=== PATIENT | male | born 1970 | race Caucasian/White ===

== ENCOUNTER → 2019-07-15 12:35 | Outpatient (CLI) | payer OTHER, MEDICARE, SELFPAY ==
--- NOTE | ~2019-07-15 | XR_ITS ---
XR hand RT min 3V 07/15/2019 13:04 INDICATION: Right thumb pain PROCEDURE: 3 views right hand COMPARISON: No prior studies for comparison. FINDINGS: Fracture, dislocation or subluxation is not identified. The soft tissues appear within norm al limits. No foreign bodies are identified. IMPRESSION: 1: NO ACUTE BONE OR JOINT ABNORMALITY IDENTIFIED. Reviewed, dictated and finalized at location A. ELING CLERK
== END ==
PROVIDERS: PCP Family Medicine Adolescent Medicine; Visit Provider Physician Assistant
DX: M79.644 Pain in right finger(s) (principal)
CPT/HCPCS: 73130

== ENCOUNTER 2020-03-04 02:52 | Outpatient (CLI) | payer OTHER, MEDICARE, SELFPAY ==
[2020-03-04 23:12] LABS: SARS-CoV-2 RNA PCR Negative
== END 2020-03-04 02:53 | disposition home or self-care (01) ==
LOC: ANHCOVIDDT 02:52
PROVIDERS: PCP Family Medicine Adolescent Medicine; Visit Provider Internal Medicine Gastroenterology
DX: Z01.812 Encounter for preprocedural laboratory examination (principal); Z20.828 Contact with and (suspected) exposure to other viral communicable diseases
CPT/HCPCS: 87635; C9803; U0003

== ENCOUNTER 2020-03-07 01:09 | Day surgery (SDC) | payer OTHER, MEDICARE, SELFPAY ==
[2020-03-01 10:22] VITALS: BMI 24.3
[2020-03-07 07:54] VITALS: BMI 22.8
[2020-03-07 07:55] VITALS: BP 122/78; PULSE 86; RESP 18; TEMP 36.5; O2SAT 96
[2020-03-07] MEDS: LACTATED RINGERS 1,000 ML 150 ML IV CONT (08:04)
--- NOTE | 2020-03-07 08:30 | WPDANESEPPF ---
Anes - Initial Pre Proc Eval Procedure: Operation Date: 03/07/20 09:00 Proposed Procedures p Screening Colonoscopy - Homar Moulton MD Date/Time: 03/07/20 08:30 Surgeon: Homar Moulton MD Pre Op Diagnosis: Neoplasm Screening Patient Data Age: 50 Gender: M Height: 6 ft Weight: 76.3 kg Last Vital Signs Temp 36.5 C 03/07/20 07:55 Pulse 86 03/07/20 07:55 Resp 18 03/07/20 07:55 BP 122/78 03/07/20 07:55 Pulse Ox 96 03/07/20 07:55 Allergies Allergy/AdvReac Type Severity Reaction Status Date / Time gabapentin Allergy Severe Swelling Verified 03/07/20 07:52 of Lip/Tongue/Throat pregabalin Allergy Severe Swelling Verified 03/07/20 07:52 of Lip/Tongue/Throat propofol Allergy Severe Anaphylactic Verified 03/07/20 07:52 Shock erythromycin base Allergy Intermediate Difficulty Verified 03/07/20 07:52 Breathing propranolol Allergy Unknown Hypertensio Verified 03/07/20 07:52 n ADHESIVES Allergy Mild Rash Uncoded 03/07/20 07:52 Home Medications Medication Instructions Recorded Confirmed Type carbidopa-levodopa 2 tablet PO TID 03/01/20 03/07/20 History naproxen 500 mg PO PRN PRN 03/01/20 03/07/20 History primidone 150 mg PO BID 03/01/20 03/07/20 History Patient hx anesthesia problems: other (propofol - per pt. required shock - cannnot find documentation) Family hx anesthesia problems: none PMFSH Past Medical History Medical History Parkinson disease, symptomatic Smoker Surgical History Surgical History (Updated 03/07/20 @ 08:31 by Luan Brannon MD) H/O carpal tunnel repair Hx of cystoscopy Social History Social History Smoking packs per day: 1 Smoking cigarettes per day: 20.0 Years smoked: 15 Smoking pack-years: 15.00 Smoking status: Current every day smoker Tobacco type: cigarettes Alcohol intake: current Drinks per week: 3 Substance use: never Substance use type: does not use Living arrangements: with family Spiritual care concerns: No Anes - Eval Final PreProcedure Day of Procedure 03/07/20 08:30 Patient weight: normal Heart: regular rate and rhythm Lungs: clear to auscultation Airway: Mallampati scale class II Neurological: alert and oriented Last oral intake: >/= 8 hours ASA classification: III Emergent: no Anesthetic plan: proceed Anesthesia type and monitoring: general GIVS and standard monitoring Informed Consent: The patient's anesthetic plan and its attendant risks and benefits were discussed with the patient/family/POA. Questions were solicited and answers provided to the satisfaction of the patient/family/POA.
[2020-03-07] MEDS: MIDAZOLAM HCL (*CRX) 2 MG/2 ML VIAL IV PUSH (09:01)
--- NOTE | 2020-03-07 09:03 | PM.HPGS ---
History of Present Illness History of Present Illness Consent: Risks, benefits, and alternatives have been discussed and questions answered. Patient agrees to proceed with procedure. Chief complaint: Neoplasm Screening Narrative: Ronald Ventura is a 50 year old W male referred for his 1st screening colonoscopy. Family history of colon cancer in brother diagnosed in his late 50s. Patient is asymptomatic. [facility] Past Medical History Medical History Parkinson disease, symptomatic Smoker Surgical History Surgical History H/O carpal tunnel repair Hx of cystoscopy Social History Social History Smoking packs per day: 1 Smoking cigarettes per day: 20.0 Years smoked: 15 Smoking pack-years: 15.00 Smoking status: Current every day smoker Tobacco type: cigarettes Alcohol intake: current Drinks per week: 3 Substance use: never Substance use type: does not use Living arrangements: with family Spiritual care concerns: No Meds Home Medications and Allergies Home Medications Medication Instructions Recorded Confirmed Type carbidopa-levodopa 2 tablet PO TID 03/01/20 03/07/20 History naproxen 500 mg PO PRN PRN 03/01/20 03/07/20 History primidone 150 mg PO BID 03/01/20 03/07/20 History Allergies Allergy/AdvReac Type Severity Reaction Status Date / Time gabapentin Allergy Severe Swelling Verified 03/07/20 07:52 of Lip/Tongue/Throat pregabalin Allergy Severe Swelling Verified 03/07/20 07:52 of Lip/Tongue/Throat propofol Allergy Severe Anaphylactic Verified 03/07/20 07:52 Shock erythromycin base Allergy Intermediate Difficulty Verified 03/07/20 07:52 Breathing propranolol Allergy Unknown Hypertensio Verified 03/07/20 07:52 n ADHESIVES Allergy Mild Rash Uncoded 03/07/20 07:52 Vital Signs Vital Signs - 24 hr 03/07/20 07:55 Temperature 36.5 C Pulse Rate 86 Respiratory Rate 18 Blood Pressure 122/78 Pulse Oximetry 96 Exam Const: Orientation/consciousness: patient oriented x3 Resp: Auscultation: clear to auscultation bilaterally Cardio: Rate: regular rate Rhythm: regular rhythm Heart sounds: no murmurs GI: GI Palp: Yes Soft to palpation, No Tenderness to palpation present (GI), Yes No hepatosplenomegaly present and No Palpable mass present Auscultation: normal bowel sounds Neuro: General: patient oriented x3 and no focal motor deficits Extrem: General: no pedal edema Assessment and Plan Additional Plan Screening colonoscopy in high risk patient
[2020-03-07 10:01] VITALS: BP 143/92; PULSE 81; RESP 21; O2SAT 98
[2020-03-07 10:11] VITALS: BP 131/83; PULSE 80; RESP 17; O2SAT 100
[2020-03-07 10:21] VITALS: BP 136/86; PULSE 81; RESP 18; O2SAT 100
--- NOTE | 2020-03-07 10:47 | SUR.PHASEII ---
Intra Op nurse unable to reach at cell# pt listed- no reports/updates given.Pt gave land line to try. Pt's called at 0925 for report. 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 Pt's arrived at stated time. Pt discharged in stable condition. [id number]
== END 2020-03-07 10:45 | disposition home or self-care (01) ==
PROVIDERS: PCP Family Medicine Adolescent Medicine; Visit Provider Internal Medicine Gastroenterology
PROC: 0DJD8ZZ Inspection of Lower Intestinal Tract, Via Natural or Artificial Opening Endoscopic (ICD-10-PCS; CPT 45378; principal; 2020-03-07 09:00)
DX: Z12.11 Encounter for screening for malignant neoplasm of colon (principal); K57.30 Diverticulosis of large intestine without perforation or abscess without bleeding; K64.8 Other hemorrhoids; K64.4 Residual hemorrhoidal skin tags; Z80.0 Family history of malignant neoplasm of digestive organs; G20 Parkinson's disease; F17.210 Nicotine dependence, cigarettes, uncomplicated
CPT/HCPCS: 45378; J2250; J7120

== ENCOUNTER 2020-09-09 15:22 | Outpatient (CLI) | payer OTHER, MEDICARE, SELFPAY | END 2020-09-09 15:23 | disposition home or self-care (01) | LOC: ANHCOVIDVC 15:22 | PROVIDERS: PCP Family Medicine Adolescent Medicine | DX: Z23 Encounter for immunization (principal) | CPT/HCPCS: 0001A; 91300 ==

== ENCOUNTER 2020-09-30 15:13 | Outpatient (CLI) | payer OTHER, MEDICARE, SELFPAY | END 2020-09-30 15:14 | disposition home or self-care (01) | LOC: ANHCOVIDVC 15:13 | PROVIDERS: PCP Family Medicine Adolescent Medicine | DX: Z23 Encounter for immunization (principal) | CPT/HCPCS: 0002A; 91300 ==

== ENCOUNTER → 2021-02-16 13:42 | Outpatient (CLI) | payer OTHER, MEDICARE, SELFPAY ==
--- NOTE | ~2021-02-16 | XR_ITS ---
EXAMINATION: XR elbow RT min 3V DATE: 02/16/2021 14:13 INDICATION: Right elbow pain. TECHNIQUE: 4 views of right elbow were obtained. COMPARISON: None. FINDINGS: Bone alignment is normal. No fracture. Joint spaces are well maintained. There is no elbow joint effusion. IMPRESSION: 1. Normal right elbow. Reviewed, dictated and finalized at location A. IMPRESSION: 1. Normal right elbow.
== END ==
PROVIDERS: PCP Family Medicine Adolescent Medicine; Visit Provider Physician Assistant
DX: M25.521 Pain in right elbow (principal)
CPT/HCPCS: 73080

== ENCOUNTER 2021-07-07 09:20 | Outpatient (CLI) | payer OTHER, MEDICARE, SELFPAY ==
--- NOTE | 2021-07-07 09:30 | ECG_ITS ---
Measurements Intervals [place] Rate: 73 P: 70 IN: 145 QRS: -60 QRSD: 101 T: 46 QT: 378 QTc: 417 Interpretive Statements SINUS RHYTHM INCOMPLETE RIGHT BUNDLE BRANCH BLOCK LEFT ANTERIOR FASCICULAR BLOCK PEAKED T WAVES- CONSIDER HYPERKALEMIA OR ISCHEMIA BASELINE ARTIFACT- I, III, AVL ABNORMAL ECG Electronically Signed On 07-07-2021 10:44:32 PICK UP TRUCK DRIVER by Damion Ledesma D.O.
== END 2021-07-07 09:21 | disposition home or self-care (01) ==
LOC: ANHSURGERY 09:24
PROVIDERS: PCP Family Medicine Adolescent Medicine; Visit Provider Orthopaedic Surgery
DX: Z01.818 Encounter for other preprocedural examination (principal); F17.210 Nicotine dependence, cigarettes, uncomplicated; I45.10 Unspecified right bundle-branch block; I44.4 Left anterior fascicular block
CPT/HCPCS: 93005

== ENCOUNTER 2021-07-14 03:39 | Day surgery (SDC) | payer OTHER, MEDICARE, SELFPAY ==
[2021-07-05 14:42] VITALS: BMI 23.1
--- NOTE | 2021-07-05 14:55 | PC.NURSE ---
Report to the Outpatient Waiting Room, entrance under the green pavilion located off [facility], at time 8:30 on date 07/14/21. OR Time: 10:30. - You will be asked a series of questions to screen for COVID 19 for your protection. - A mask is required within the hospital. - No visitors are allowed at this time. Preoperative COVID Testing Requirements: No COVID Test needed if: (proof is required; if not received patient will have Rapid Test prior to entry) - Patient has received COVID Vaccine at least 14 days prior to procedure date or - Patient has positive COVID test result within last 90 days of surgery date. COVID Test needed if above criteria is not met Patients may have clear liquids (water, carbonated beverages, clear teas, apple juice) until 3 hours prior to surgery (7:30) with a maximum of 20 ounces. - No food from midnight until time of surgery Take the following medications with a SIP of water the morning of surgery: CARBIDOPA-LEVODOPA, PRIMIDONE, LORAZEPAM (IF NEEDED) Medications to discontinue per physician: VITAMINS/SUPPLEMENTS Date to take last dose: 07/10/21 STOP NAPROXEN 7 DAYS PRIOR TO SURGERY PER DR. SUTHERLAND Please no make-up, nail nepalese, hairspray, perfume, deodorant, or body powder the day of surgery. No jewelry (including any body piercings) or valuables the day of surgery, leave them at home. Please take a shower or bath the night before, or the morning of, surgery with an antibacterial soap. Wear comfortable, loose fitting clothing. - Jewelry must be removed prior to entering the operating room. Rings and piercings that are not removed may be cut off. - The hospital will not accept responsibility for valuables. - Please leave all valuables, including medications, at home the day of surgery. If you are going home after surgery, a licensed recycling collections driver must drive you home. - NO public transportation without another adult. - We recommend that an adult stay with you for 24 hours following discharge. - We also recommend that you do not drive, make important decision, drink alcoholic beverages, or take any drugs that were not prescribed by your health care provider for at least 24 hours after your discharge time. Follow any additional instructions given to you from your surgeon. Telephone instructions given to BROOKE SCHROEDER and asked if any additional questions and then verbalized understanding. Patient advised to call surgeon office or pre surgery nurse liaison [phone] if any additional questions.
[2021-07-14] VITALS (8 sets, daily range): BP systolic 126–144; BP diastolic 77–88; PULSE 59–94; RESP 12–20; TEMP 36.1–36.3; O2SAT 96–100
--- NOTE | 2021-07-14 07:32 | WPDHPUPDATE1 ---
History and Physical Update Update Date/Time: 07/14/21 07:32 History and Physical has been reviewed, including an updated exam of the patient. There are NO changes in the patient's condition. Risks, benefits, and alternatives have been discussed and questions answered. Patient agrees to proceed with procedure.
[2021-07-14] MEDS: ACETAMINOPHEN 500 MG TABLET 1000 MG PO (08:16)
[2021-07-14] MEDS: LACTATED RINGERS 1,000 ML 30 ML IV CONT ×2 (08:16→10:10)
[2021-07-14] MEDS: KETOROLAC 15 MG/ML VIAL (*BKC) IV PUSH (08:16)
--- NOTE | 2021-07-14 08:23 | WPDANESEPPF ---
Anes - Initial Pre Proc Eval Procedure: Operation Date: 07/14/21 10:30 Proposed Procedures p Open Lateral Epicondyle Debridement Right Elbow, Right Cubital Tunnel Decompression - Nikhil Hernandez MD Date/Time: 07/14/21 08:23 Surgeon: Nikhil Hernandez MD Pre Op Diagnosis: lateral epicondylitis right elbow Patient Data Age: 51 Gender: M Height: 1.82 m Weight: 77 kg Allergies Allergy/AdvReac Type Severity Reaction Status Date / Time gabapentin Allergy Severe Swelling Verified 07/14/21 08:23 of Lip/Tongue/Throat pregabalin Allergy Severe Swelling Verified 07/14/21 08:23 of Lip/Tongue/Throat propofol Allergy Severe Anaphylactic Verified 07/14/21 08:23 Shock erythromycin base Allergy Intermediate Difficulty Verified 07/14/21 08:23 Breathing propranolol Allergy Unknown Hypertensio Verified 07/14/21 08:23 n ADHESIVES Allergy Mild Rash Uncoded 07/14/21 08:23 Home Medications Medication Instructions Recorded Confirmed Type carbidopa-levodopa 2 tablet PO TID 03/01/20 07/05/21 History naproxen 500 mg PO PRN PRN 03/01/20 07/05/21 History primidone 150 mg PO BID 03/01/20 07/05/21 History lorazepam 1 mg tablet 1 mg PO BID PRN 03/06/21 07/05/21 History dicyclomine 20 mg PO TID PRN 07/05/21 07/05/21 History multivitamin 1 tablet PO DAILY 07/05/21 07/05/21 History Patient hx anesthesia problems: none Family hx anesthesia problems: none Results Review: All pre-operative results and documents have been reviewed as part of the pre-operative evaluation. [facility] Past Medical History Medical History Anxiety Parkinson disease, symptomatic Smoker Surgical History Surgical History H/O carpal tunnel repair Hx of cystoscopy Social History Social History Smoking packs per day: 1 Smoking cigarettes per day: 20.0 Years smoked: 15 Smoking pack-years: 15.00 Smoking status: Current every day smoker Tobacco type: cigarettes Alcohol intake: current Drinks per week: 3 Substance use: never Substance use type: does not use Other substance usage details: CBD ORAL DROPS FOR TREMORS Living arrangements: with family Spiritual care concerns: No Anes - Eval Final PreProcedure Day of Procedure 07/14/21 08:23 Patient weight: normal Heart: regular rate and rhythm Lungs: clear to auscultation Airway: Mallampati scale class II Neurological: alert and oriented Last oral intake: >/= 8 hours ASA classification: III Emergent: no Anesthetic plan: proceed Anesthesia type and monitoring: general LMA and standard monitoring Results Review: All pre-operative results and documents have been reviewed as part of the pre-operative evaluation. Informed Consent: The patient's anesthetic plan and its attendant risks and benefits were discussed with the patient/family/POA. Questions were solicited and answers provided to the satisfaction of the patient/family/POA.
[2021-07-14] MEDS: ceFAZolin 2 GM/D5W 50 ML 2 GM/50 ML BAG IVPB (08:54)
[2021-07-14] MEDS: BUPIVACAINE/EPINEPHRINE 0.25% 10 ML VIAL 20 ML INFILTRATE (09:04)
[2021-07-14] MEDS: fentaNYL CITRATE INJ (*CRX) 100 MCG/2 ML VIAL 25 MCG IV PUSH ×3 (10:40→11:00)
[2021-07-14] MEDS: oxyCODONE HCL (*CRX) 5 MG TAB IR PO (11:29)
--- NOTE | 2021-07-14 16:11 | P.OP_ITS ---
Procedure Note - Detailed Date of Procedure 07/14/21 Pre-op Diagnosis 1. Lateral epicondylitis right elbow 2. Ulnar neuropathy right elbow. Post-op Diagnosis same Procedure Performed 1. Cubital tunnel decompression right elbow. 2. Lateral epicondylitis common extensor tendon debridement. Surgeon Nikhil Hernandez MD Piece Work Inspector Eileen Rodas PA-C Anesthesia general Description of Procedure Operative details: The patient was brought to the operating room. Preoperative antibiotics were given. A general anesthetic was administered. The arm was prepped and draped in the usual sterile fashion with a well-padded tourniquet on the arm. The limb was exsanguinated and the tourniquet inflated to 250 mililiters of mercury. A longitudinal incision was created over the pathological site at the lateral epicondyle. Dissection was brought down to the interval between the common extensor tendons and the extensor carpi radialis longus. The muscle was elevated, exposing the extensor carpi radialis brevis. Degenerative pathologic tendon was identified and excised sharply. The lateral epicondyle was abraded with a rongeur. The scratch test was to confirm complete excision of pathologic tissue. The wound was carefully irrigated. The tourniquet was released. The extensor tendon origin was repaired with [id number] sutures #1 Vicryl . Attention was turned medially. A longitudinal incision was created posterior to the medial epicondyle. Careful dissection was brought down to the ulnar nerve. It was identified proximally and dissected to the cubital tunnel retinaculum. Careful dissection released the cubital tunnel retinaculum. The dissection was carried out to the flexor carpi the palmaris. The 1st motor branch was carefully identified and protected. Attention was turned proximally and the nerve was released proximal to the intermuscular septum. The arm was flexed and the nerve was assessed. The nerve was stable. The tourniquet was released. Meticulous hemostasis was maintained. The wounds were closed with interrupted 3-0 Monocryl suture followed by running 4-0 Monocryl suture and Steri-Strips. Sterile dressing was applied with the wrist splint, and posterior splint. The patient was extubated and brought to the recovery room in stable condition. Estimated Blood Loss 5 Drains No Pathology none sent Complications No immediate complications Condition stable Disposition PACU
== END 2021-07-14 12:20 | disposition home or self-care (01) ==
PROVIDERS: PCP Family Medicine Adolescent Medicine; Visit Provider Orthopaedic Surgery
PROC: (CPT 24359; principal; 2021-07-14 10:30)
DX: M77.11 Lateral epicondylitis, right elbow (principal); G56.21 Lesion of ulnar nerve, right upper limb; G20 Parkinson's disease; F41.9 Anxiety disorder, unspecified; F17.210 Nicotine dependence, cigarettes, uncomplicated; F12.90 Cannabis use, unspecified, uncomplicated
CPT/HCPCS: 24359; 64718; 93005; A9270; J0690; J1100; J1885; J2250; J2405; J3010; J7120

== ENCOUNTER 2022-02-25 17:11 | Emergency (ER) | payer OTHER, MEDICARE, SELFPAY ==
--- NOTE | ~2022-02-25 | XR_ITS ---
EXAMINATION: XR chest 2V Exam Date/Time: 02/25/2022 18:08 CDT HISTORY: neck pain to chest Comparison: 03/28/2009. RESULT: Lines, tubes, and devices: Interbody devices at the thoracolumbar junction. Lungs and pleura: Clear. Cardiomediastinal silhouette: Stable. Other: No acute osseous or upper abdominal finding. IMPRESSION: No acute cardiopulmonary process. Reviewed, dictated and finalized at location K.
[2022-02-25 17:34] VITALS: BP 142/89; PULSE 99; RESP 16; TEMP 36.5; O2SAT 100
--- NOTE | 2022-02-25 18:26 | ECG_ITS ---
Measurements Intervals [place] Rate: 78 P: 26 [place]: 128 QRS: -58 QRSD: 104 T: 48 QT: 379 QTc: 434 Interpretive Statements SINUS RHYTHM POSSIBLE RIGHT VENTRICULAR CONDUCTION DELAY [RSR (QR) IN V1/V2] LEFT ANTERIOR FASCICULAR BLOCK [QRS AXIS <= -45, QR IN I, RS IN II] PEAKED T-WAVES/CONSIDER HYPERKALEMIA COMPARED TO ECG 07/07/2021 09:54:18 NO SIGNIFICANT CHANGES Electronically Signed On 02-26-2022 14:37:42 CDT by Kofi Monsivais M.D.
--- NOTE | 2022-02-25 18:36 | ED.GENADULT ---
HPI - General Adult General Chief complaint: Unspecified Stated complaint: odd chest pain Source: patient Mode of arrival: ambulatory Limitations: no limitations History of Present Illness HPI narrative: Patient presents for evaluation of neck pain which radiates into his chest since yesterday. He indicates that pain occurs approximately 12-15 times per day and lasts seconds. He states that this feels like a hot pulse . He rates his pain 5 out of 10 in severity. Denies any shortness of breath. He has an occasional cough. No history of similar symptoms. He has underlying Parkinson's. He denies any underlying hypertension, hyperlipidemia, diabetes. He is a former smoker, with [id number] history. No maternal or paternal history of heart disease. Reports high stress levels. He drinks several beers on a daily basis but consumes at least 5-6 beers multiple times per week. Denies any illicit drug use. He states that his symptoms seem to occur when he closes his eyes. No additional complaints or concerns. Related Data Home Medications Medication Instructions Recorded Confirmed carbidopa 25 mg-levodopa 100 mg 2 tablet PO TID 03/01/20 02/25/22 tablet naproxen 500 mg tablet 500 mg PO PRN PRN Pain 03/01/20 02/25/22 primidone 50 mg tablet 150 mg PO BID 03/01/20 02/25/22 Allergies Allergy/AdvReac Type Severity Reaction Status Date / Time clindamycin Allergy Severe Hives Verified 02/25/22 17:37 gabapentin Allergy Severe Swelling Verified 02/25/22 17:37 of Lip/Tongue/Throat pregabalin Allergy Severe Swelling Verified 02/25/22 17:37 of Lip/Tongue/Throat propofol Allergy Severe Anaphylactic Verified 02/25/22 17:37 Shock erythromycin base Allergy Intermediate Difficulty Verified 02/25/22 17:37 Breathing propranolol Allergy Unknown Hypertensio Verified 02/25/22 17:37 n cefaclor AdvReac Intermediate Vomiting Verified 02/25/22 17:37 ADHESIVES Allergy Mild Rash Uncoded 02/25/22 17:37 Review of Systems Review of Systems: CONSTITUTIONAL: Denies fever, chills, or sweats. EYES: Denies visual changes, redness, or discharge. ENT: Denies rhinorrhea, congestion, sore throat, or otalgia. CARDIOVASCULAR: Reports chest pain. Denies palpitations, or edema. RESPIRATORY: Denies cough or dyspnea. GASTROINTESTINAL: Denies abdominal pain, nausea, vomiting, or diarrhea. GENITOURINARY: Denies dysuria or hematuria. SKIN: Denies rash or itching. MUSCULOSKELETAL: Reports right-sided neck pain with radiation into the chest. NEUROLOGIC: Denies headache, numbness, dizziness, or weakness. PSYCHIATRIC: Denies anxiety or depression. [facility] Past Medical History Medical History Anxiety Parkinson disease, symptomatic Smoker Ureteral calculus, right (2011) Surgical History Surgical History H/O carpal tunnel repair Hx of appendectomy (2003) Hx of cystoscopy Hx of hemorrhoidectomy (2013) Hx of neck surgery Hx of tonsillectomy Family History Family History Sibling Carcinoma of colon Social History Social History Smoking packs per day: 1 Smoking cigarettes per day: 20.0 Years smoked: 11 Smoking pack-years: 11.00 Smoking status: Former smoker Tobacco type: cigarettes Second hand tobacco smoke exposure: No Smoking end date: 01/10/22 Alcohol intake: current Alcohol use details: Drinks several beers per day Substance use: never Substance use type: does not use Other substance usage details: CBD ORAL DROPS FOR TREMORS Living arrangements: with family Additional occupation/education comments: Disability Gender identity (if verbalized by the patient): Male Sexual Orientation (if Verbalized by the Patient): Straight or Heterosexual Spiritual care c
== END 2022-02-25 19:20 | disposition short-term general hospital (02) ==
PROVIDERS: Emergency Provider Nurse Practitioner; PCP Family Medicine Adolescent Medicine
DX: R07.9 Chest pain, unspecified (principal); G20 Parkinson's disease; Z87.891 Personal history of nicotine dependence
CPT/HCPCS: 71046; 93005; 99213; G0463

== ENCOUNTER 2022-02-25 19:52 | Emergency (ER) | payer OTHER, MEDICARE, SELFPAY ==
[2022-02-25] VITALS (14 sets, daily range): BP systolic 128–139; BP diastolic 85–89; PULSE 71–82; RESP 13–24; TEMP 36.3; O2SAT 97–100
--- NOTE | 2022-02-25 20:05 | ECG_ITS ---
Measurements Intervals [place] Rate: 82 P: 151 [place]: 133 QRS: -23 QRSD: 100 T: 105 QT: 360 QTc: 422 Interpretive Statements ECTOPIC ATRIAL RHYTHM POSSIBLE LEFT ATRIAL ENLARGEMENT [-0.1mV P WAVE IN V1/V2] BORDERLINE LEFT AXIS DEVIATION [QRS AXIS < -20] INCOMPLETE RIGHT BUNDLE BRANCH BLOCK [90+ ms QRS DURATION, TERMINAL R IN V1/V2, 40+ ms S IN I/aVL/V4/V5/V6] LEFT VENTRICULAR HYPERTROPHY AND ST-T CHANGE [VOLTAGE CRITERIA PLUS ST/T ABNORMALITY] COMPARED TO ECG 02/25/2022 18:26:20 PEAKED T-WAVE CHANGES ARE SOMEWHAT IMPROVED Electronically Signed On 02-26-2022 14:41:26 CDT by Kofi Monsivais M.D.
[2022-02-25 20:20] LABS: Basophils Percent Auto 0.4 % (0.2-1.2); Eosinophils Absolute Auto 0.3 K/mm3 (0-0.3); Eosinophils Percent Auto 3.5 % (0-4.4); Hematocrit 42.2 % (42.0-52.0); Hemoglobin 13.9 g/dL (14.0-18.0); Immature Granulocyte Absolute 0.01 K/mm3 (0.00-0.031); Immature Granulocyte Percent A 0.1 % (0-0.5); Lymphocytes Absolute Auto 2.27 K/mm3 (0.9-3.2); Lymphocytes Percent Auto 29.5 % (18.3-44.2); Mean Corpuscular HGB Conc 32.9 g/dl (32-36); Mean Corpuscular Hemoglobin 30.8 pg (26-34); Mean Corpuscular Volume 93.6 fl (80-100); Mean Platelet Volume 9.1 fl (7.4-10.4); Monocytes Absolute Auto 0.8 K/mm3 (0.1-0.6); Monocytes Percent Auto 9.9 % (2.6-8.5); Neutrophils Absolute Auto 4.4 K/mm3 (1.3-6.7); Neutrophils Percent Auto 56.6 % (45.5-73.1); Platelet Count Result 313 k/mm3 (150-375); Red Blood Count 4.51 M/mm3 (4.6-6.20); Red Cell Distribution Width 13.4 % (11.5-14.5); White Blood Count 7.7 K/mm3 (4.5-10.0)
[2022-02-25 20:30] LABS: Prothrombin Time 12.8 Seconds (11.1-14.7)
[2022-02-25 20:31] LABS: Alanine Aminotransferase 9 U/L (6-50); Alkaline Phosphatase 60 U/L (38-126); Anion Gap 11 mmol/L (8-16); Aspartate Amino Transferase 43 U/L (17-59); Bilirubin,Total 0.6 mg/dL (0.2-1.3); Blood Urea Nitrogen 19 mg/dL (9-20); Calcium 9.1 mg/dL (8.4-10.2); Carbon Dioxide 24 mmol/L (22-30); Chloride 104 mmol/L (98-107); Estimated CRCL calculation 111 ml/min; Estimated Glomerular Filt Rate > 60; Glucose 99 mg/dL (65-110); Lipase 58 U/L (23-300); Partial Thromboplastin Time 33.1 SECONDS (22.3-36.8); Potassium 4.2 mmol/L (3.4-5.0); Sodium 139 mmol/L (137-145)
[2022-02-25 20:43] LABS: Troponin I < 0.012 ng/mL (0.000-0.034)
[2022-02-25] MEDS: ASPIRIN 81 MG CHEWABLE TABLET 324 MG PO (20:51)
--- NOTE | 2022-02-25 22:14 | ED.CHESTPAIN ---
HPI - Chest Pain General Chief Complaint: Chest Pain <KAYDEN Sood Filed: 02/26/22 01:26> Stated Complaint: chest pain <KAYDEN Sood Filed: 02/26/22 01:26> Time Seen by Provider: 02/25/22 20:43 <KAYDEN Sood Last Filed: 02/26/22 01:26> Source: patient <KAYDEN Sood Filed: 02/26/22 01:26> Mode of arrival: ambulatory <KAYDEN Sood Filed: 02/26/22 01:26> Limitations: no limitations <KAYDEN Sood Filed: 02/26/22 01:26> History of Present Illness HPI narrative: Patient is a 52 y/o male who presents to the ED with c/o right-sided neck pain, radiating into his midsternal chest, for the past 3 days. Patient reports pain has been intermittent, occurring a few times every hour. He has not tried anything for the pain. Notes occasional shortness of breath, but denies pleuritic pain. Patient states he had a similar episode of pain 4 years ago in which she was told he had an infection of his heart and was given 3 to 5 day course of antibiotics. Denies any nausea, vomiting, fever, ear pain, cough, cold sx's. <KAYDEN Sood Last Filed: 02/26/22 01:26> Related Data Home Medications: Home Medications Medication Instructions Recorded Confirmed carbidopa 25 mg-levodopa 100 mg 2 tablet PO TID 03/01/20 02/25/22 tablet naproxen 500 mg tablet 500 mg PO PRN PRN Pain 03/01/20 02/25/22 primidone 50 mg tablet 150 mg PO BID 03/01/20 02/25/22 <KAYDEN Sood Last Filed: 02/26/22 01:26> Allergies/Adverse Reactions: Allergies Allergy/AdvReac Type Severity Reaction Status Date / Time clindamycin Allergy Severe Hives Verified 02/25/22 17:37 gabapentin Allergy Severe Swelling Verified 02/25/22 17:37 of Lip/Tongue/Throat pregabalin Allergy Severe Swelling Verified 02/25/22 17:37 of Lip/Tongue/Throat propofol Allergy Severe Anaphylactic Verified 02/25/22 17:37 Shock erythromycin base Allergy Intermediate Difficulty Verified 02/25/22 17:37 Breathing propranolol Allergy Unknown Hypertensio Verified 02/25/22 17:37 n cefaclor AdvReac Intermediate Vomiting Verified 02/25/22 17:37 ADHESIVES Allergy Mild Rash Uncoded 02/25/22 17:37 <Anat Ayala PA-C - Last Filed: 02/26/22 01:26> Review of Systems Review of Systems: CONSTITUTIONAL: Denies fever, chills, or sweats. ENT: Denies rhinorrhea, congestion, sore throat. CARDIOVASCULAR: Reports midsternal chest pain. RESPIRATORY: Reports SOB. Denies cough. GASTROINTESTINAL: Denies abdominal pain, nausea, vomiting. MUSCULOSKELETAL: Reports right-sided neck pain into the chest. 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
[2022-02-25 22:49] LABS: D Dimer 0.43 ug/mL (<0.48)
[2022-02-25 23:24] LABS: Troponin I < 0.012 ng/mL (0.000-0.034)
[2022-02-26 00:09] VITALS: BP 129/76; PULSE 76; RESP 18; O2SAT 98
== END 2022-02-26 00:10 | disposition home or self-care (01) ==
PROVIDERS: Physician Assistant; Emergency Provider Emergency Medicine; PCP Family Medicine Adolescent Medicine
DX: R07.89 Other chest pain (principal); G20 Parkinson's disease; F41.9 Anxiety disorder, unspecified; Z87.891 Personal history of nicotine dependence; F12.90 Cannabis use, unspecified, uncomplicated
CPT/HCPCS: 36415; 71046; 80053; 83690; 84484; 85025; 85380; 85610; 85730; 93005; 99284; A9270

== ENCOUNTER 2022-06-02 10:17 | Emergency (ER) | payer OTHER, MEDICARE, SELFPAY ==
[2022-06-02 10:26] VITALS: BP 129/82; PULSE 80; RESP 18; TEMP 36.8; O2SAT 100
--- NOTE | 2022-06-02 10:38 | ED.GENADULT ---
HPI - General Adult General Chief complaint: Fall Stated complaint: Fall/ Don't Remember Time Seen by Provider: 06/02/22 10:38 Source: patient, RN notes reviewed and old records reviewed Mode of arrival: ambulatory Limitations: no limitations History of Present Illness HPI narrative: 52-year-old male presents to the [facility] with his with complaints of falling night. Does not remember why or how he fell does not remember if he was indoors or outdoors. states that she woke him up Saturday morning and he started vomiting complaining of a headache, eye pain, bruising around the eyes. No midline tenderness. states that she was concerned for a concussion. Has only taken prescribe medication Onset (ago): day(s) (2) Related Data Home Medications Medication Instructions Recorded Confirmed carbidopa 25 mg-levodopa 100 mg 2 tablet PO QID 03/01/20 06/02/22 tablet primidone 50 mg tablet 150 mg PO BID 03/01/20 06/02/22 ipratropium bromide 21 mcg (0.03 2 spray intranasal BID 06/02/22 06/02/22 %) nasal spray propranolol 10 mg tablet 10 mg BID 06/02/22 06/02/22 Allergies Allergy/AdvReac Type Severity Reaction Status Date / Time clindamycin Allergy Severe Hives Verified 06/02/22 10:32 gabapentin Allergy Severe Swelling Verified 06/02/22 10:32 of Lip/Tongue/Throat pregabalin Allergy Severe Swelling Verified 06/02/22 10:32 of Lip/Tongue/Throat propofol Allergy Severe Anaphylactic Verified 06/02/22 10:32 Shock erythromycin base Allergy Intermediate Difficulty Verified 06/02/22 10:32 Breathing propranolol Allergy Unknown Hypertensio Verified 06/02/22 10:32 n cefaclor AdvReac Intermediate Vomiting Verified 06/02/22 10:32 ADHESIVES Allergy Mild Rash Uncoded 06/02/22 10:32 Review of Systems Review of Systems: All systems reviewed & are unremarkable except as noted in HPI and below Constitutional: Constitutional: Reports as per HPI, Reports fatigue and Reports headache(s) Eyes: Eyes: Reports as per HPI, Reports change in vision and Reports photophobia ENT: Reports system reviewed and no additional complaints, except as documented Cardiovascular: Cardiovascular: Reports no additional cardiovascular complaints, Denies chest pain and Denies dyspnea Respiratory: Respiratory: Reports no additional respiratory complaints, Denies chest congestion, Denies cough and Denies dyspnea Gastrointestinal: Gastrointestinal: Reports no additional gastrointestinal complaints, Denies abdominal pain, Denies nausea and Denies vomiting Musculoskeletal: Musculoskeletal: Reports no additional musculoskeletal complaints Integumentary/Breasts: Skin/Breast: Reports system reviewed and no additional complaints, except as docu Neurologic: Reports system reviewed and no additional complaints, except as documented Psychiatric: Psychiatric: Reports no additional psychiatric complaints Allergic/Immunologic: Allergic/Immunologic: Reports no additional allergic/immunologic complaints PMFSH Past Medical History Medical History Anxiety Parkinson disease, symptomatic Smoker Ureteral calculus, right (2011) Surgical History Surgical History H/O carpal tunnel repair 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
== END 2022-06-02 10:48 | disposition short-term general hospital (02) ==
PROVIDERS: Emergency Provider Nurse Practitioner; PCP Family Medicine Adolescent Medicine
DX: S09.90XA Unspecified injury of head, initial encounter (principal); W19.XXXA Unspecified fall, initial encounter; Z87.891 Personal history of nicotine dependence; G20 Parkinson's disease
CPT/HCPCS: 99212; G0463

== ENCOUNTER 2022-06-02 11:08 | Emergency (ER) | payer OTHER, MEDICARE, SELFPAY ==
[2022-06-02] VITALS (10 sets, daily range): BP systolic 107–146; BP diastolic 63–91; PULSE 70–85; RESP 16; TEMP 36.5–36.8; O2SAT 96–100
--- NOTE | ~2022-06-02 | CT_ITS ---
EXAMINATION: CT cervical spine wo con DATE: 06/02/2022 13:29 INDICATION: Neck pain after trauma TECHNIQUE: Computed tomography (CT) of the cervical spine was performed without intravenous contrast. The dose-length product was 328 mGy-cm. Automated exposure control and iterative reconstruction tech Stadius were employed. COMPARISON: MRI cervical spine dated 12/08/2004 FINDINGS: Normal cervical lordosis. There is disc narrowing and endplate degenerative change at C6-7. Craniovertebral junction is normal. Odontoid process is normal. No acute fracture, subluxation or di slocation. Mild multilevel uncinate and facet degenerative change, most prominent at C6-7. Lateral ma sses normally aligned. No paraspinal soft tissue abnormality. No evidence for perched facet. Spinous processes are normal. IMPRESSION: 1. No acute abnormality of the cervical spine. Reviewed, dictated and finalized at location A. DISPATCHER
--- NOTE | ~2022-06-02 | CT_ITS ---
EXAMINATION: CTA brain carotid DATE: 06/02/2022 13:36 [employer]S HELPER INDICATION: Trauma. Recurrent emesis. TECHNIQUE: Computed tomographic angiography (CTA) of the head was performed without and with 100 mL O mnipaque-350 intravenous contrast. CTA of the neck was performed with intravenous contrast. The dose- length product was 1879.03 mGy-cm. Maximum intensity projection and volume rendered 3D-reconstruction s were created by the technologist on a separate workstation. Automated exposure control and iterative reconstruction technique were employed. COMPARISON: CT dated 07/06/2005 and MRI dated 03/08/2010. FINDINGS: HEAD CTA: There are focal parenchymal hemorrhage of the frontal lobes bilaterally with surrounding va sogenic edema. No ventriculomegaly or midline shift. Basilar cisterns are patent. There is mucosal th ickening of the paranasal sinuses. Small foreign body identified in the left supraorbital location. T here is a nondepressed frontal skull fracture slightly lateral to the midline on the left. The verteb ral and basilar arteries are normal. The grand traverse of Humphre[place] is within normal limits. The anterior, midd le and posterior cerebral arteries are symmetric. No significant stenosis, occlusion or aneurysm. NECK CTA: Lung apices are unremarkable. No significant abnormality of the aorta is seen. Great vessel s within normal limits. Mild atherosclerosis of the carotid arteries without significant stenosis, or dissection. No occlusion. Vertebral arteries are within normal limits bilaterally. No evidence for d issection. Thyroid gland is unremarkable. There is 0% stenosis of the proximal right internal carotid artery relative to normal distal artery l umen diameter (NASCET criteria). There is less than 10% stenosis of the proximal left internal caroti d artery relative to normal distal artery lumen diameter. IMPRESSION: 1: Bilateral frontal lobe parenchymal hemorrhages with surrounding vasogenic edema. 2: Nondepressed frontal skull fracture. 3: Moderate sinus disease. 4: No significant vascular abnormality of the head or neck. Dr. Juan Carlos Lin discussed with Dr. Tish Cotton MD at 06/02/2022 13:45 [employer] HEL[employer]. Reviewed, dictated and finalized at location A. A'S HELPER IMPRESSION: 1: Bilateral frontal lobe parenchymal hemorrhages with surrounding vasogenic ed karen. 2: Nondepressed frontal skull fracture. 3: Moderate sinus disease. 4: No significant vascular abnormality of the head or neck. Dr. Juan Carlos Lin discussed with Dr. Tish Cotton MD at 06/02/2022 13:45 [employer] HELPER.
--- NOTE | ~2022-06-02 | XR_ITS ---
EXAMINATION: XR chest 2V 06/02/2022 12:58 INDICATION: Status post fall. Chest pain. PROCEDURE: 2 view chest COMPARISON: 02/25/2022 FINDINGS: The lungs are clear. The lungs are hyperinflated which is consistent with, but not diagnost ic of chronic obstructive pulmonary disease. The cardiomediastinal silhouette is within normal limits . There are no pleural effusions. There is no pneumothorax suspected. IMPRESSION: 1: NO ACUTE CARDIOPULMONARY DISEASE. Reviewed, dictated and finalized at location A. ITIES ESTIMATOR AND DRAFTER
--- NOTE | 2022-06-02 12:12 | ED.HEATRA ---
HPI - Head Injury General Chief complaint: Head Injury Stated complaint: head injury Time Seen by Provider: 06/02/22 12:00 History of Present Illness HPI Narrative: Patient is a 52-year-old male with a history of Parkinson's presenting with a head injury. Patient states that a day and a half ago he went out with some friends and had a few beers. States that he remembers getting home but then the next thing he remembers is waking up in his bed the next day. States that when he woke up he had several episodes of vomiting as well as diffuse body aches so he assumed he had the flu. Today when he woke up he again had an episode of emesis and then he noticed bruising around both of his eyes. His took him to urgent care who advised he come to the ER. Patient currently complains of a frontal headache as well as pain in his eyelids. He denies pain with eye movement. Denies numbness or weakness or vision changes. Denies neck or back pain. No chest pain, shortness of breath, palpitations, lightheadedness, abdominal pain, leg swelling. No difficulty with ambulation. Related Data Home Medications Medication Instructions Recorded Confirmed carbidopa 25 mg-levodopa 100 mg 2 tablet PO QID 03/01/20 06/02/22 tablet primidone 50 mg tablet 150 mg PO BID 03/01/20 06/02/22 ipratropium bromide 21 mcg (0.03 2 spray intranasal BID 06/02/22 06/02/22 %) nasal spray propranolol 10 mg tablet 10 mg BID 06/02/22 06/02/22 Allergies Allergy/AdvReac Type Severity Reaction Status Date / Time clindamycin Allergy Severe Hives Verified 06/02/22 11:46 gabapentin Allergy Severe Swelling Verified 06/02/22 11:46 of Lip/Tongue/Throat pregabalin Allergy Severe Swelling Verified 06/02/22 11:46 of Lip/Tongue/Throat propofol Allergy Severe Anaphylactic Verified 06/02/22 11:46 Shock erythromycin base Allergy Intermediate Difficulty Verified 06/02/22 11:46 Breathing propranolol Allergy Unknown Hypertensio Verified 06/02/22 11:46 n cefaclor AdvReac Intermediate Vomiting Verified 06/02/22 11:46 ADHESIVES Allergy Mild Rash Uncoded 06/02/22 10:32 Review of Systems Review of Systems: All systems reviewed & are unremarkable except as noted in HPI and below PMFSH Past Medical History Medical History Anxiety Parkinson disease, symptomatic Smoker Ureteral calculus, right (2011) Surgical History Surgical History H/O carpal tunnel repair 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ent Alcohol use details: Drinks several beers per day Substance use: never Substance use type: does not use Other substance usage details: CBD ORAL DROPS FOR TREMORS Additional occupation/education comments: Disability Gender identity (if verbalized by the patient): Male Sexual Orientation (if Verbalized by the Patient): Straight or Heterosexual Spiritual care concerns: No Exam Narrative: GENERAL: Nontoxic, in no acute distress, pleasant and cooperative HEAD: Normocephalic EYES: PERRLA and EOMI. bilateral periorbital ecchymoses ENT: Nares clear, no rhinorrhea or epistaxis. Mucous membranes moist. NECK: Supple. No midline tenderness of neck or back, healed midline incision lower back CHEST: Clear to auscultation. No respiratory
[2022-06-02 12:31] LABS: Basophils Percent Auto 0.2 % (0.2-1.2); Eosinophils Absolute Auto 0.1 K/mm3 (0-0.3); Eosinophils Percent Auto 0.8 % (0-4.4); Hematocrit 46.4 % (42.0-52.0); Hemoglobin 15.2 g/dL (14.0-18.0); Immature Granulocyte Absolute 0.02 K/mm3 (0.00-0.031); Immature Granulocyte Percent A 0.2 % (0-0.5); Lymphocytes Absolute Auto 1.94 K/mm3 (0.9-3.2); Lymphocytes Percent Auto 23.1 % (18.3-44.2); Mean Corpuscular HGB Conc 32.8 g/dl (32-36); Mean Corpuscular Hemoglobin 30.5 pg (26-34); Mean Corpuscular Volume 93.2 fl (80-100); Mean Platelet Volume 9.1 fl (7.4-10.4); Monocytes Percent Auto 11.3 % (2.6-8.5); Neutrophils Absolute Auto 5.4 K/mm3 (1.3-6.7); Neutrophils Percent Auto 64.4 % (45.5-73.1); Platelet Count Result 267 k/mm3 (150-375); Red Blood Count 4.98 M/mm3 (4.6-6.20); Red Cell Distribution Width 12.8 % (11.5-14.5); White Blood Count 8.4 K/mm3 (4.5-10.0)
[2022-06-02 12:41] LABS: Alanine Aminotransferase 20 U/L (6-50); Albumin Level 4.9 g/dL (3.5-5.1); Alkaline Phosphatase 65 U/L (38-126); Anion Gap 8 mmol/L (8-16); Aspartate Amino Transferase 42 U/L (17-59); Bilirubin,Total 0.6 mg/dL (0.2-1.3); Blood Urea Nitrogen 15 mg/dL (9-20); Calcium 9.2 mg/dL (8.4-10.2); Carbon Dioxide 29 mmol/L (22-30); Chloride 99 mmol/L (98-107); Estimated CRCL calculation 99 ml/min; Estimated Glomerular Filt Rate > 60; Glucose 106 mg/dL (65-110); INR 0.9; Potassium 3.8 mmol/L (3.4-5.0); Prothrombin Time 12.2 Seconds (11.1-14.7); Sodium 136 mmol/L (137-145)
[2022-06-02 12:42] LABS: Partial Thromboplastin Time 31.9 SECONDS (22.3-36.8)
[2022-06-02] MEDS: SODIUM CHLORIDE 0.9% IV 1,000 ML 999 ML IV CONT (12:50)
[2022-06-02] MEDS: ONDANSETRON INJ 4 MG/2 ML VIAL IV PUSH (12:50)
[2022-06-02 13:06] LABS: Influenza A QL RT-PCR Negative (Negative); Influenza B QL RT-PCR Negative (Negative); SARS-CoV-2 RNA PCR Negative
== END 2022-06-02 15:02 | disposition short-term general hospital (02) ==
LOC: ANHED 13:29
PROVIDERS: Emergency Provider Emergency Medicine; PCP Family Medicine Adolescent Medicine
DX: S06.30AA Unspecified focal traumatic brain injury with loss of consciousness status unknown, initial encounter (principal); S02.0XXA Fracture of vault of skull, initial encounter for closed fracture; Z20.822 Contact with and (suspected) exposure to COVID-19; G20 Parkinson's disease; Z89.519 Acquired absence of unspecified leg below knee; Z87.891 Personal history of nicotine dependence; J32.9 Chronic sinusitis, unspecified; W19.XXXA Unspecified fall, initial encounter
CPT/HCPCS: 36415; 70496; 70498; 71046; 72125; 80053; 85025; 85610; 85730; 87636; 96361; 96374; 96375; 99291; J0131; J2405; J7030; Q9967

== ENCOUNTER → 2023-07-17 14:09 | Outpatient (CLI) | payer OTHER, MEDICARE, SELFPAY ==
--- NOTE | ~2023-07-17 | XR_ITS ---
EXAMINATION: XR shoulder RT min 2V DATE: 07/17/2023 14:22 INDICATION: Right shoulder injury and pain. TECHNIQUE: 4 views of right shoulder were obtained. COMPARISON: None. FINDINGS: Bone alignment is normal. No fracture. The glenohumeral joint is normal. There is moderate acromioclavicular joint osteoarthritis. IMPRESSION: 1. Moderate right acromioclavicular joint osteoarthritis. Reviewed, dictated and finalized at location E. ATIONS TRAINER
== END ==
PROVIDERS: PCP Nurse Practitioner Family; Visit Provider Nurse Practitioner Family
DX: M19.011 Primary osteoarthritis, right shoulder (principal)
CPT/HCPCS: 73030

== ENCOUNTER 2023-10-02 13:30 | Outpatient (RCR) | payer OTHER, MEDICARE, SELFPAY ==
[2023-08-23 12:30] VITALS: BP_SYST 130
--- NOTE | 2023-08-23 13:27 | OPREHPOC ---
Outpatient Therapy Plan of Care This is a Multidisciplinary Plan of Care that may contain components documented by all disciplines (PT, OT, and ST.) PT Problem 1 PT Problem #1 Knowledge Deficit PT Goal 1 Goal *indep with HEP * correct shoulder position with exercises PT Problem 2 PT Problem #2 Pain PT Goal 1 Goal 1* pain rating at worst of 5/10 2* Self assessment Quick DASH rating of 38% limitation in activity 3* pt report with sleeping, total time of 5 hours/ night PT Problem 3 PT Problem #3 Impaired Strength PT Goal 1 Goal increase strength of R shoulder to improve use of his dominant arm for home and self care activities -ie, reach into cabinets, wash back: in standing 5 reps: 1* flexion to 145' 2* abduction to 90' 3* IR- reach behind back, fingers to lower scapula edge
--- NOTE | 2023-08-23 13:27 | PTOPEVAL1 ---
Assessment and note entered by Tita Rojas, PT Evaluation Information Assessment Status Evaluation Diagnosis R shoulder pain Onset Apr 2023 Subjective Information gradual increase in shoulder pain--no injury to arm; have history of R elbow surgery and bilateral carpal tunnel surgery, Parkinson's R handed; self assessment Quick DASH score of 61% limitation in activity problems doing house work, scratch his back, using his R arm to do anything; x ray report states: mild A-C joint OA; ultrasound: thickening of supraspinatus, tendinosis, thickening and fluid in bursa; Reported Pain Level Pain Score Self Report Additional Pain Score Comments pain range 0-10/10: stabbing, ripping pain in shoulder; point to lateral and posterior shoulder into upper humerus increase pain: use or move R shoulder decrease pain: rest, heat sleeping total of 3-4 hours/night ( his norm is 6- 8 hrs) Assessment PT Clinical Summary Ronald has the diagnosis of R shoulder pain. He is R hand dominant. His medical history includes: bilateral carpal tunnel and R elbow surgery, lumbar surgery and back pain and Parkinson's disease. He is on disability. Self assessment Quick DASH rating of 61% limitation in activity tolerance. Pain is disrupting his sleep and activity with R arm. With the evaluation: he has decreased ROM and strength of R shoulder, with abduction the most painful motion; tenderness over posterior and lateral GH joint and upper traps areas; rounded sitting and standing posture. Skilled PT services are indicated for modalities to decrease pain, with progression to strengthening as tolerated; education for HEP and posture correction. Plan of Care Interventions Electrical Stimulation,Hot Pack/Cold Pack,Manual Therapy,Neuro Re-education,Patient/Caregiver Education,Therapeutic Activities,Therapeutic Exercise,Ultrasound,Other Other Interventions ta
--- NOTE | 2023-10-02 14:38 | PTOPDC ---
Assessment and note entered by Kofi Dunn Evaluation Information Assessment Status Evaluation Diagnosis R shoulder pain Onset April 2023 Subjective Information Pt. reports about 20-25% improvement in his overall pain. He states that he still has pain at night limiting sleep. He also notices pain increase with reaching overhead and behind his back. Reported Pain Level Pain Score 5: Self Report Assessment PT Clinical Summary Pt. demonstrates no deficits in regards to shoulder strength. He continues to demonstrate ROM deficits and guarding with passive movements. Special testing is consistent with impingement syndrome as no strength deficits are noted. At this time pt. inquires regarding following up with his doctor as he feels there may be a tear. At this time pt. is instructed to contact the M.D. regarding possibility of an MRI study to determine integrity of the soft tissues. Plan of Care PT Services Indicated No
== END 2023-10-02 14:49 | disposition home or self-care (01) ==
LOC: ANHPT 13:30
PROVIDERS: PCP Nurse Practitioner Family; Visit Provider Orthopaedic Surgery
DX: M75.81 Other shoulder lesions, right shoulder (principal)
CPT/HCPCS: 97014; 97110; 97140; 97161; 97530; G0283

== ENCOUNTER 2023-10-11 12:15 | Outpatient (CLI) | payer OTHER, MEDICARE, SELFPAY ==
--- NOTE | ~2023-10-11 | MR_ITS ---
EXAMINATION: MR shoulder RT wo con DATE: 10/11/2023 13:39 INDICATION: Right shoulder pain. TECHNIQUE: Magnetic resonance imaging (MRI) of the right shoulder was performed without intravenous c ontrast. Sequences included axial PD-weighted FS FSE, coronal oblique PD-weighted FS FSE and T2-weigh yarely FS FSE, and sagittal oblique T2-weighted FS FSE and T1-weighted FSE. COMPARISON: Right shoulder radiographs 07/17/2023 FINDINGS: Coracoacromial arch: The acromion undersurface is flat in morphology (type I). There is severe acromioclavicular joint ost eoarthritis. There is mild subacromial/subdeltoid bursitis. Rotator cuff: There is moderate supraspinatus tendinopathy and mild infraspinatus tendinopathy. Teres minor tendon is normal. There is moderate subscapularis tendinopathy. There is no asymmetric fatty atrophy of the rotator cuff muscle bellies. Biceps tendon and glenoid labrum: Biceps tendon is in bicipital groove. There is mild intra-articular biceps tendinopathy. There is a t ear of the superior labrum from 11:00 to 12:00 (SLAP tear). Fluid: There is no glenohumeral joint effusion. Bones/cartilage: There is cartilage surface irregularity of glenoid and humeral head. IMPRESSION: 1. Moderate rotator cuff tendinopathy. No tear. 2. Mild glenohumeral joint chondrosis. 3. Severe acromioclavicular joint osteoarthritis. 4. Mild intra-articular biceps tendinopathy. 5. Mild subacromial/subdeltoid bursitis. Reviewed, dictated and finalized at location E.
== END 2023-10-11 12:16 ==
LOC: MICIMG 12:16
PROVIDERS: PCP Family Medicine Adolescent Medicine; Visit Provider Orthopaedic Surgery
DX: M25.511 Pain in right shoulder (principal); M77.8 Other enthesopathies, not elsewhere classified; M94.8X1 Other specified disorders of cartilage, shoulder; M19.011 Primary osteoarthritis, right shoulder; M75.51 Bursitis of right shoulder
CPT/HCPCS: 73221

== ENCOUNTER 2023-11-21 08:01 | Outpatient (CLI) | payer OTHER, MEDICARE, SELFPAY ==
--- NOTE | 2023-11-21 08:10 | ECG_ITS ---
Test Date: 2023-11-21 08:25:02 Measurements Intervals [place] Rate: 68 P: 66 UT: 160 QRS: -51 QRSD: 105 T: 36 QT: 396 QTc: 423 Interpretive Statements SINUS RHYTHM LEFT ANTERIOR FASCICULAR BLOCK [QRS AXIS <= -45, QR IN I, RS IN II] No previous ECG available for comparison Electronically Signed On 11-21-2023 13:36:28 CDT by Sheree Cornejo M.D.
== END 2023-11-21 08:02 | disposition home or self-care (01) ==
LOC: ANHSURGERY 08:07
PROVIDERS: PCP Family Medicine Adolescent Medicine; Visit Provider Orthopaedic Surgery
DX: E78.00 Pure hypercholesterolemia, unspecified (principal); Z01.818 Encounter for other preprocedural examination; I44.4 Left anterior fascicular block
CPT/HCPCS: 93005

== ENCOUNTER 2023-11-26 00:42 | Day surgery (SDC) | payer OTHER, MEDICARE, SELFPAY ==
[2023-11-19 15:35] VITALS: BMI 23.8
--- NOTE | 2023-11-19 15:36 | PC.NURSE ---
Report to the Outpatient Waiting Room, entrance under the green pavilion located off [facility], at time _1130_ on date _[id number]_. Planned Procedure Time: _130pm_. Time changes happen often and if your time is changed the preop area will call you the afternoon before. - You and your visitor will be asked to self-screen and do not enter if you have any COVID symptoms. - A mask is optional within the hospital at this time. Patients may have clear liquids (water, carbonated beverages, clear teas, apple juice) until 3 hours prior to surgery with a maximum of 20 ounces. - No food from midnight until time of surgery Take the following medications with a SIP of water the morning of surgery: ___Carbidopa-Levodopa, Primidone and propanolol DO NOT STOP ANY OF YOUR OTHER PRESCRIPTION MEDICATIONS PRIOR TO SURGERY ?EXCEPT THE FOLLOWING Medications to discontinue per physician Naproxen Date to take last steq__[id number] Please no make-up, nail burundian, hairspray, perfume, deodorant, or body powder the day of surgery. No jewelry (including any body piercings) or valuables the day of surgery, leave them at home. Please take a shower or bath the night before, or the morning of, surgery with an antibacterial soap. Wear comfortable, loose fitting clothing. - Jewelry must be removed prior to entering the operating room. Rings and piercings that are not removed may be cut off. - The hospital will not accept responsibility for valuables. - Please leave all valuables, including medications, at home the day of surgery. If you are going home after surgery, a licensed driver examiner must drive you home. - NO public transportation without another adult if you receive anesthesia. - We recommend that an adult stay with you for 24 hours following discharge. - We also recommend that you do not drive, make important decision, drink alcoholic beverages, or take any drugs that were not prescribed by your health care provider for at least 24 hours after your discharge time. Follow any additional instructions given to you from your surgeon. If you or anyone in your household have experienced Covid symptoms in the past week, please notify your surgeon or the nurse liaison at the phone number below for possible testing. Telephone instructions given to __Mark___and asked if any additional questions and then verbalized understanding. Patient advised to call surgeon office or pre surgery nurse liaison [phone] if any additional questions.
[2023-11-26] VITALS (8 sets, daily range): BP systolic 122–147; BP diastolic 77–91; PULSE 55–85; RESP 12–18; TEMP 36.2–36.9; O2SAT 95–100; BMI 23.3
[2023-11-26] MEDS: ACETAMINOPHEN 500 MG TABLET 1000 MG PO (11:39)
[2023-11-26] MEDS: KETOROLAC 15 MG/ML VIAL (*BKC) IV PUSH (11:39)
--- NOTE | 2023-11-26 12:57 | WPDHPUPDATE1 ---
History and Physical Update Update Date/Time: 11/26/23 12:57 History and Physical has been reviewed, including an updated exam of the patient. There are NO changes in the patient's condition. Risks, benefits, and alternatives have been discussed and questions answered. Patient agrees to proceed with procedure.
--- NOTE | 2023-11-26 13:05 | WPDANESEPPF ---
Anes - Initial Pre Proc Eval Procedure: Operation Date: 11/26/23 13:30 Proposed Procedures p Right Shoulder Arthroscopy with Subacromial Decompression, Proceed as Indicated - Nikhil Hernandez MD Date/Time: 11/26/23 13:05 Surgeon: Nikhil Hernandez MD Pre Op Diagnosis: right shoulder rotator cuff tendonitis Patient Data Age: 53 Gender: M Height: 1.8 m Weight: 75.7 kg Last Vital Signs Temp 36.9 C 11/26/23 11:01 Pulse 85 11/26/23 11:01 BP 126/86 11/26/23 11:01 Pulse Ox 99 11/26/23 11:01 O2 Del Method Room Air 11/26/23 11:01 Allergies Allergy/AdvReac Type Severity Reaction Status Date / Time clindamycin Allergy Severe Hives Verified 11/20/23 09:25 gabapentin Allergy Severe Swelling Verified 11/20/23 09:25 of Lip/Tongue/Throat pregabalin Allergy Severe Swelling Verified 11/20/23 09:25 of Lip/Tongue/Throat propofol Allergy Severe Anaphylactic Verified 11/20/23 09:25 Shock erythromycin base Allergy Intermediate Difficulty Verified 11/20/23 09:25 Breathing adhesive Allergy Rash Verified 11/20/23 09:25 cefaclor AdvReac Intermediate Vomiting Verified 11/20/23 09:25 Home Medications Medication Instructions Recorded Confirmed Type carbidopa 25 mg-levodopa 100 mg 2 tablet PO QID 03/01/20 11/21/23 History tablet primidone 50 mg tablet 150 mg PO BID 03/01/20 11/21/23 History propranolol 10 mg tablet 10 mg BID 06/02/22 11/21/23 History dicyclomine 20 mg tablet 20 mg PO TID PRN Abdominal 06/19/22 11/21/23 Rx Discomfort #270 tabs ipratropium bromide 21 mcg (0.03 2 spray intranasal .prn PRN 03/07/23 11/21/23 History %) nasal spray Allergy Symptoms omeprazole 40 mg capsule,delayed See Rx Instructions .Route 08/14/23 11/21/23 Rx release .COMPLEX #90 caps naproxen 500 mg tablet 500 mg PO BID PRN pain #180 tabs 10/20/23 11/21/23 Rx lorazepam 2 mg tablet 2 mg PO QHS #90 tabs 11/12/23 11/21/23 Rx hydrocodone 5 mg-acetaminophen 325 1 - 2 tablet PO Q4-6H PRN pain #30 11/26/23 Rx mg tablet tabs Patient hx anesthesia problems: none Family hx anesthesia problems: none Results Review: All pre-operative results and documents have been reviewed as part of the pre-operative evaluation. 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 Hx of appendectomy (2003) Hx of cystoscopy Hx of hemorrhoidectomy (2013) Hx of neck surgery Hx of tonsillectomy Family History Family History Sibling Carcinoma of colon Social History Social History Smoking packs per day: 1 Smoking cigarettes per day: 20.0 Years smoked: 8 Smoking pack-years: 8.00 Smoking status: Former smoker Tobacco type: cigarettes Second hand tobacco smoke exposure: No Smoking end date: 01/13/22 Alcohol intake: current Alcohol use details: Drinks several beers per day Substance use: never Substance use type: does not use Other substance usage details: CBD ORAL DROPS FOR TREMORS Lack of Transportation: No Lack of Food: Never True Current Housing: I Have Housing Concerned About Future Housing: No Difficulty Paying Gas/Electric Bills: No Difficulty Paying for Meds: No Currently Unemployed: No Education: Trade/Vocational Certificate Difficulty w/ Childcare or Family Care: No Living arrangements: with family Additional occupation/education comments: Disability Gender identity (if verbalized by the patient): Male Sexual Orientation (if Verbalized by the Patient): Straight or Heterosexual Spiritual care concerns: No Anes - Ev
[2023-11-26] MEDS: ceFAZolin 2 GM/D5W 50 ML 2 GM/50 ML BAG IVPB (13:11)
[2023-11-26] MEDS: LACTATED RINGERS 1,000 ML 30 ML IV CONT ×2 (13:22→14:50)
[2023-11-26] MEDS: EPINEPHrine HCL INJ 1 MG/ML AMPUL 2 MG IRRIGATION (13:46)
[2023-11-26] MEDS: BUPIVACAINE/EPINEPHRINE 0.5% 50 ML VIAL 30 ML INFILTRATE (13:47)
--- NOTE | 2023-11-26 14:49 | W.PM.PROC2 ---
Procedure Note - Detailed Date of Procedure 11/26/23 Pre-op Diagnosis 1. Right shoulder rotator cuff tendinitis 2. Right shoulder SLAP tear Post-op Diagnosis Other (1. Rotator cuff tendinitis 2. SLAP tear 3. Adhesive capsulitis) Procedure Performed Right shoulder arthroscopic 1. Biceps tenodesis (intra-articular) with SLAP tear debridement 2. Capsular release with manipulation under anesthesia 3. Subacromial decompression Surgeon Nikhil eHrnandez MD Director Compensation Eileen Rodas PA-C Anesthesia General Indications Severe pain and shoulder dysfunction. MRI showed evidence of impingement with rotator cuff tendinosis, and SLAP tear. Findings Significant SLAP tear with extension into the biceps anchor. The shoulder was very stiff upon examination under anesthesia particularly in extension. Proximally 20 degree external rotation improved to 60? with manipulation, and anterior capsule release. Elevation improved from 30-160. Internal rotation in abduction stable at 70. The rotator cuff showed minimal grade 1 fraying articular and bursal less than 5%. The subscapularis was intact. There was some wear of the posterior humeral articular cartilage which appeared chronic, and healed. Description of Procedure Patient was given an interscalene block in the holding area. Preoperative antibiotics were given. The patient was brought to the operating room. Careful positioning in the beach chair was accomplished. The head neck were carefully positioned. A small bump was placed under the left shoulder. The shoulder was examined. There was definite contracture particularly in external rotation. Gentle manipulation particularly in elevation improved and range of motion. Internal rotation appeared fairly normal. The shoulder was prepped and draped in the usual sterile fashion. Standard posterior and anterior arthroscopic portals were established. Inflows obtained with the saline pump. The articular cartilage had mild fraying on the humerus. There was a moderate SLAP tear with instability superiorly. There was also a separate area of splitting of the biceps anchor. Shoulder was tight and the arthroscope had difficulty initially. The middle glenohumeral ligament appeared very thickened and this was released. The rotator interval tissue was debrided. Improvement in external rotation and maneuverability in the joint was significant. Posterior cuff had a nice sulcus. The inferior cuff was mildly hyperemic. Motion was significantly improved and the inferior pouch was left in situ. Biceps was tagged with a loop and tack. This was placed into the 4.75 mm SwiveLock anchor at the articular margin. Biceps was released prior to anchor placement. The supraspinatus had minimal anterior articular fraying. This was treated with a gentle debridement and was less than 5% involvement. Remaining posterior and anterior labrum are normal. The subscapularis had minimal blistering on the superior surface without evidence for tearing. Attention was turned to the subacromial space. A complete bursectomy was performed. Bursa tissue was moderately prominent. There were significant thickened bands. The bursal side supraspinatus showed signs of impingement with a small 5% tearing of the superficial fibers of the supraspinatus and fraying at the anterolateral acromion undersurface. The type 2 acromion was treated with acromioplasty of the anterolateral aspect using the arthroscopic bur. The acromion was clearly visualized. The coracoacromial ligament was released. Careful acromioplasty was performed utilizing views from both lateral and posterior. Loose bone fragments were carefully irrigated from the joint. The arthroscopic instruments were removed. The wounds were closed with interrupted 3-0 Monocryl suture followed by Steri-Strips. A sterile dressing was applied with a sling. Additional examination revealed improvement in external rotation to 60?. Elevation was approximat
[2023-11-26] MEDS: fentaNYL CITRATE INJ (*CRX) 100 MCG/2 ML VIAL 25 MCG IV PUSH ×4 (15:00→15:14)
[2023-11-26] MEDS: oxyCODONE HCL (*CRX) 5 MG TAB IR PO (16:13)
== END 2023-11-26 17:05 | disposition home or self-care (01) ==
PROVIDERS: PCP Family Medicine Adolescent Medicine; Visit Provider Orthopaedic Surgery
PROC: (CPT 29805; principal; 2023-11-26 13:30)
DX: M75.81 Other shoulder lesions, right shoulder (principal); M75.21 Bicipital tendinitis, right shoulder; M75.31 Calcific tendinitis of right shoulder; M75.41 Impingement syndrome of right shoulder; F41.9 Anxiety disorder, unspecified; G20.A1 Parkinson's disease without dyskinesia, without mention of fluctuations; Z79.891 Long term (current) use of opiate analgesic; Z79.1 Long term (current) use of non-steroidal anti-inflammatories (NSAID); Z98.890 Other specified postprocedural states; Z89.519 Acquired absence of unspecified leg below knee; Z98.1 Arthrodesis status; Z87.891 Personal history of nicotine dependence; Z80.0 Family history of malignant neoplasm of digestive organs
CPT/HCPCS: 29828; 29826; 93005; A4565; A9270; C1713; J0171; J0330; J0690; J1100; J1170; J1885; J2250; J2270; J2405; J3010; J7120

== ENCOUNTER 2024-02-20 09:15 | Outpatient (RCR) | payer OTHER, MEDICARE, SELFPAY ==
--- NOTE | 2023-11-27 18:23 | PTOPEVAL1 ---
Assessment and note entered by Jessenia Page, PT Evaluation Information Assessment Status Evaluation Diagnosis Z48.89 ICD-10 Condition Codes (PT) Z47.89 Onset approx 3 months ago or longer Subjective Information Pt reports pain in the shoulder for > 3 mos. Pt is having stabbing pains when he lifts his arm. Dr. Prakash gave him an injection and he previously underwent shoulder PT but did not get any relief; Pt also states laying in bed is painful if he moves or rolls on that side. No noted injury. Presents today with s/p 20 hrs post-op Right Shoulder Arthroscopy with Subacromial Decompression, wearing a sling and has bandages around incision site. Reported Pain Level Pain Score 5: Self Report Assessment PT Clinical Summary Pt presents to therapy s/p Right Shoulder Arthroscopy with Subacromial Decompression secondary to R Rotator cuff tendonitis, R shoulder Superior labrum [id number] (SLAP). Noted significant ROM deficits, increased pain with movements, weakness, swelling, decreased joint play and shoulder kinematics. He will greatly benefit from skilled PT to reduce pain, improve mobility and thus reducing risk for contractures, improve indep and safe performance of ADLs and IADLs. Plan of Care Interventions Gait Training,Hot Pack/Cold Pack,Manual Therapy, Neuro Re-education,Patient/Caregiver Education, Therapeutic Activities,Therapeutic Exercise PT Services Indicated Yes Treatment Frequency and 2x/week for 10 visits Duration These treatments will address the objective and functional deficits as defined above. The patient will be advanced safely and appropriately in order for the patient to progress towards his/her prior level of function. Additional exercises will be introduced and as well as a comprehensive home exercise program upon discharge, if needed, ?to ensure carryover of functional gains achieved in the clinic. This treatment plan has been reviewed and agreement upon by the patient.
--- NOTE | 2024-01-06 17:20 | PTOPPROG ---
Assessment and note entered by Arun Chi, PT Evaluation Information Assessment Status Progress Diagnosis Z48.89 ICD-10 Condition Codes (PT) Z47.89 Onset approx 3 months ago or longer Subjective Information Reports that he has been busy today. He has been using the weed eater, dishes, etc. and has tried not taking any pain medication (Vicatin) to see how he does with activity. Still taking naproxen. He reports that he is still having some pain down back of neck and down arm as well to index finger. Overall still feels very stiff and limited by pain but has previously managed with medication. Follows up with MD on 01/08/24. Assessment PT Clinical Summary Patient continues to show significant functional shoulder ROM loss but has made significant progress from his first visit. Continues to be very guarded with stretching secondary to pain. Overall we continue to emphasize ROM as tolerated as that remain primary deficit in pursuits of gross improved function. 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 Plan of Care Interventions Gait Training,Hot Pack/Cold Pack,Manual Therapy, Neuro Re-education,Patient/Caregiver Educati, Therapeutic Activities,Therapeutic Exercise PT Services Indicated Yes Treatment Frequency and 2x/week for 10 visits Duration These treatments will address the objective and functional deficits as defined above. The patient will be advanced safely and appropriately in order for the patient to progress towards his/her prior level of function. Additional exercises will be introduced and as well as a comprehensive home exercise program upon discharge, if needed, ?to ensure carryover of functional gains achieved in the clinic. This treatment plan has been reviewed and agreement upon by the patient.
--- NOTE | 2024-02-24 08:01 | PTOPDC ---
Assessment and note entered by Arun Chi, PT Evaluation Information Assessment Status Discharge - Pt Not Presen Diagnosis Z48.89 ICD-10 Condition Codes (PT) Z47.89 Onset approx 3 months ago or longer Subjective Information Patient contacted clinic stating that he followed up with MD and was told to discharge from skilled therapy at this time and rest the shoulder. Assessment PT Clinical Summary Patient to be discharged from skilled therapy at this time per MD recommendation and patient desire . Please refer to last treatment note for discharge status. Plan of Care PT Services Indicated Yes
== END 2024-02-24 10:03 | disposition home or self-care (01) ==
LOC: ANHPT 09:15
PROVIDERS: PCP Family Medicine Adolescent Medicine; Visit Provider Orthopaedic Surgery
DX: Z48.89 Encounter for other specified surgical aftercare (principal)
CPT/HCPCS: 97016; 97110; 97140; 97161; 97530

== ENCOUNTER 2024-05-06 09:47 | Outpatient (CLI) | payer OTHER, MEDICARE, SELFPAY ==
--- NOTE | 2024-05-06 09:52 | EST_ITS ---
Patient Info Name: Ronald Ventura Age: 54 years : 1970 Gender: Male Ht: 71 in Wt: 170 lbs BSA: 1.97 m2 HR: 66 bpm BP: 128 / 80 mmHg Exam Date: 05/06/2024 10:18 AM Exam Location: Echo Lab Patient Status: Outpatient Admit Date: 05/06/2024 Staff Ordering Physician: Ingrid Garcia DO Attending Provider: Ingrid Garcia DO Exercise Technologist: Asmita Alford [facility] Exercise Physician: Damion Ledesma DO Exam Type: CA stress test treadmill Study Info A treadmill exercise stress test was performed. Summary 1. 1. Negative Castro exercise stress test for ischemic ST changes by ECG criteria. 2. 2. Reduced functional capacity, achieving 7 METs of workload. 3. 3. Appropriate HR response to exercise. 4. 4. Appropriate HR recovery at 1 minute post exercise. 5. 5. No imaging with stress testing. 6. 6. Patient informed of the above results. Protocol: Castro Stress ECG Details Stage: REST Duration (min): 1 min : 52 sec Speed (mph): 0.0 Grade (%): 0 HR (bpm): 70 SBP (mmHg): 128 DBP (mmHg): 80 METS: --- Stage: REST Duration (min): 4 min : 52 sec Speed (mph): 0.0 Grade (%): 0 HR (bpm): 70 SBP (mmHg): 128 DBP (mmHg): 80 METS: --- Stage: STAGE 1 Duration (min): 1 min : 0 sec Speed (mph): 1.7 Grade (%): 10 HR (bpm): 96 SBP (mmHg): 128 DBP (mmHg): 80 METS: --- Stage: STAGE 1 Duration (min): 2 min : 0 sec Speed (mph): 1.7 Grade (%): 10 HR (bpm): 110 SBP (mmHg): 128 DBP (mmHg): 80 METS: --- Stage: STAGE 1 Duration (min): 3 min : 0 sec Speed (mph): 1.7 Grade (%): 10 HR (bpm): 113 SBP (mmHg): 127 DBP (mmHg): 60 METS: --- Stage: STAGE 2 Duration (min): 1 min : 0 sec Speed (mph): 2.5 Grade (%): 12 HR (bpm): 131 SBP (mmHg): 127 DBP (mmHg): 60 METS: --- Stage: STAGE 2 Duration (min): 2 min : 0 sec Speed (mph): 2.5 Grade (%): 12 HR (bpm): 147 SBP (mmHg): 143 DBP (mmHg): 65 METS: --- Stage: STAGE 2 Duration (min): 3 min : 0 sec Speed (mph): 2.5 Grade (%): 12 HR (bpm): 164 SBP (mmHg): 143 DBP (mmHg): 65 METS: --- Stage: RECOVERY Duration (min): 0 min : 59 sec Speed (mph): 0.0 Grade (%): 0 HR (bpm): 140 SBP (mmHg): 124 DBP (mmHg): 68 METS: --- Stage: RECOVERY Duration (min): 1 min : 59 sec Speed (mph): 0.0 Grade (%): 0 HR (bpm): 114 SBP (mmHg): 124 DBP (mmHg): 68 METS: --- Stage: RECOVERY Duration (min): 2 min : 59 sec Speed (mph): 0.0 Grade (%): 0 HR (bpm): 92 SBP (mmHg): 145 DBP (mmHg): 72 METS: --- Stage: RECOVERY Duration (min): 3 min : 8 sec Speed (mph): 0.0 Grade (%): 0 HR (bpm): 94 SBP (mmHg): 145 DBP (mmHg): 72 METS: --- Rest HR: 70 bpm Peak HR: 164 bpm Rest Sys BP: 128 mmHg Peak Sys BP: 145 mmHg Max Pred HR: 165 bpm % Max Pred HR: 99 % Target HR: 140 bpm Max RPP: 23,780 bpm*mmHg Amezquita Score: -27 Termination Reason: Reached target heart rate or workload Cardiac Symptoms: Shortness of breath Max ST Seg Deviation: 6.70 mm Total Time: 6 min : 0 sec Rest Granados BP: 80 mmHg Peak Granados BP: 72 mmHg Angina Score: None Total METS: 7.1 Resting ECG Sinus rhythm, IRBBB, LAFB. Stress ECG No ST changes. Arrhythmias None. Report Signatures
== END 2024-05-06 09:48 | disposition home or self-care (01) ==
LOC: ANHCARD 09:47
PROVIDERS: PCP Family Medicine Adolescent Medicine; Visit Provider Family Medicine
DX: R07.9 Chest pain, unspecified (principal)
CPT/HCPCS: 93017

== ENCOUNTER 2024-05-08 12:40 | Outpatient (CLI) | payer OTHER, MEDICARE, SELFPAY | END 2024-05-08 12:41 | disposition home or self-care (01) | LOC: ANHAUDIO 12:42 | PROVIDERS: PCP Family Medicine Adolescent Medicine; Visit Provider Family Medicine | DX: H93.8X3 Other specified disorders of ear, bilateral (principal) | CPT/HCPCS: 92557; 92567 ==

== ENCOUNTER 2024-05-11 13:37 | Outpatient (CLI) | payer OTHER, MEDICARE, SELFPAY ==
--- NOTE | ~2024-05-11 | CT_ITS ---
EXAMINATION:CT lung screening DATE: 05/11/2024 13:50 INDICATION: Nicotine dependence, unspecified. Smoker who quit 2 years ago with 30 pack year history. TECHNIQUE: Computed tomography (CT) of the chest was performed without intravenous contrast. Automate d exposure control and iterative reconstruction technique were employed. The dose-length product (DLP ) was 62.73 mGy-cm. COMPARISON: None. FINDINGS: There is mild emphysema. There is mild atelectasis bilaterally. No pleural effusion. The he art size is normal. There are coronary artery calcifications. No pericardial effusion. There is mild bilateral gynecomastia. There is mild thoracic spondylosis. There are changes of anterior fusion proc edure at L1-L2. IMPRESSION: 1. Lung-RADS category 1: Negative. Continue annual screening with noncontrast low-dose chest CT in 12 months. Reviewed, dictated and finalized at location A. NOLOGY SALES REPRESENTATIVE IMPRESSION: 1. Lung-RADS category 1: Negative. Continue annual screening with noncontrast l ow-dose chest CT in 12 months.
== END 2024-05-11 13:38 | disposition home or self-care (01) ==
LOC: MICIMG 13:38
PROVIDERS: PCP Family Medicine Adolescent Medicine; Visit Provider Family Medicine
DX: Z12.2 Encounter for screening for malignant neoplasm of respiratory organs (principal); Z87.891 Personal history of nicotine dependence
CPT/HCPCS: 71271

== ENCOUNTER 2025-02-11 08:44 | Outpatient (CLI) | payer OTHER, MEDICARE, SELFPAY ==
--- NOTE | ~2025-02-11 | XR_ITS ---
EXAMINATION: XR shoulder LT min 2V, 02/11/2025 8:49 CDT HISTORY: M25.512 - Pain in left shoulder COMPARISON: No comparisons available. Findings: No acute fracture or malalignment. No significant degenerative changes. Soft tissues unremarkable. Impression: No acute fracture or malalignment. Reviewed, dictated and finalized at location A. Impression: No acute fracture or malalignment.
== END 2025-02-11 08:45 | disposition home or self-care (01) ==
LOC: MICIMG 08:46
PROVIDERS: PCP Orthopaedic Surgery; Visit Provider Orthopaedic Surgery
DX: M25.512 Pain in left shoulder (principal)
CPT/HCPCS: 73030

== ENCOUNTER 2025-05-14 00:59 | Day surgery (SDC) | payer OTHER, MEDICARE, SELFPAY ==
--- OUTSIDE RECORDS SUMMARY | 2025-03-22 08:00 | XMS_ITS ---
Author Organization [facility] [employer] [place] [employer] [facility] Address [facility] [address] [address] Care Team Providers Care Basket Sorter Name Role Phone Ingrid Garcia DO Primary Care Provider Muna Calloway Unavailable [phone] REASON FOR VISIT 1 month f/u Social History Sex Assigned At : Social History Observation Description Sex Assigned At Male Encounters Encounter Location Date Provider Diagnosis [facility] [place] [id number] [facility] [address] [address] 03/22/2025 Muna Bettencourt Plan Of Treatment Next Appt Details Provider Name:Muna henry, 08/13/2025 09:00:00 AM, [address], [facility] [address], [place], [address], Progress Notes * Ronald VENTURADOB: [birth year] (55 yo M)Acc No.[id number]:03/22/2025 Patient: Ronald Longoria Noemí Provider: DEMETRIO THAKUR :1970 A ge:55 Y S ex:Male Date:03/22/2025 Address:[address] [place], [place] [id number] Pcp:Ingrid Garcia DO Subjective: * Chief Complaints: * 1 month f/u Billing Information: * Procedure Codes: * Electronic signature of DEMETRIO Galdamez on 05/14/2025 at 01:03 AM SCENIC ARTIST Sign off status: Pending * Provider: PAT THAKURHNP Date: 1 Generated for Gregoria bowser/[place] on: 07/15/2024 01:03 AM SCENIC ARTIST
[2025-04-26 14:09] VITALS: BMI 24.0
--- OUTSIDE RECORDS SUMMARY | 2025-05-13 03:45 | XMS_ITS ---
Author Organization [facility] [employer] Address [address] [facility] [address] [place] [address] Care Team Providers Care Edge Dyer Name Role Phone Ingrid Garcia DO Primary Care Provider UnavailMuna Pringle Unavailable [phone] [place] Anastasiia Unavailable [phone] Allergies Allergen (clinical drug ingredient) Drug/Non Drug Allergy documented on EMR Reaction Allergy Type Onset Date Status adhesive (uncoded) Unknown Allergy A ctive cefaclor Cefaclor Unknown Drug Allergy Active clindamycin Clindamycin Unknown Drug Allergy Act macho erythromycin Erythromycin Unknown Drug Allergy A ctive gabapentin Gabapentin Unknown Drug Allergy Activ e pregabalin Pregabalin Unknown Drug Allergy Activ e propofol Propofol Unknown Drug Allergy Active tramadol traMADol Unknown Drug Allergy Active REASON FOR VISIT 5 week f/u Medications Medication SIG (Take, Route, Frequency, Duration) Notes Start Date End Date Status Mirtazapine 30 MG Tablet 1 tablet at bed time Orally Once a day 04/02/2025 Active LORazepam 2 MG Tablet 1 tablet at bedtim e as needed Orally Once a day 04/02/2025 Active Propranolol HCl 10 MG Tablet Oral; Duration: 90 Days Acti ve Meloxicam 15 MG Tablet Oral; Duration: 90 Days Active Omeprazole 40 MG Capsule Delayed Release Oral; Duration: 90 Days A ctive Primidone 50 MG Tablet Oral; Duration: 90 Days Active Carbidopa-Levodopa 25-100 MG Tablet Oral; Duration: 90 Days Acti ve Social History Tobacco Use: Social History Observation Description Date Details (start date - stop date) Former Smoker NA - NA Sex Assigned At : Social History Observation Description Sex Assigned At Male Social History Drug/Alcohol: Social Info Question Answer Notes Drugs Have you used drugs other than those for medical reasons in the past 12 months? No AUDIT-C (Standard) Did you have a drink containing alcohol in the past year? No Caffeine Intake: 1-2 cups per day Tobacco Use: Social Info Question Answer Notes Tobacco Control (Standard) Tobacco use: Former smoker Additional Details Category Social Info Options Details Drug/Alcohol: Do you smoke marijuana? uses CBD vape occasionally Section Notes: Occupation: Retiring at end of year Living situation: Lives with , limited interaction due to her work schedule Vital Signs Blood pressure systolic 123 mm Hg 05/13/20 25 Blood pressure diastolic 93 mm Hg 025 Heart Rate 79 /min 05/13/2025 Height 72 in 05/13/2025 Weight 175.4 lbs 05/13/2025 BMI 23.79 kg/m2 05/13/2025 Height-cm 182.88 cm 05/13/2025 Weight-kg 79.56 kg 05/13/2025 Encounters Encounter Location Date Provider Diagnosis [facility] [address] [facility] [address] [place] [address] 05/13/2025 Anastasiia Sheila HAILEE (generalized anxiety disorder) F41.1 ; MDD (major depressive disorder), recurrent episode, moderate F33.1 ; Parkinson's disease, unspecified whether dyskinesia present, unspecified whether manifestations fluctuate G20.A1 and Chronic insomnia F51.04 Assessments Encounter Date Diagnosis (ICD Code) Assessment Notes Treatment Notes Treatment Clinical Notes Section Notes 05/13/2025 HAILEE (generalized anxiety disorder) (ICD-10 - F41.1) Symptoms include persistent anxiety and physical stress. Patient is trying to arrange his day and manage irritability. Declined new medications due to concerns about side effects. Continues mirtazapine and lorazepam for anxiety. Propranolol taken in the morning, noted to help with anxiety. - Continue mirtazapine 30 mg at bedtime. - Continue lorazepam as prescribed. - Continue propranolol in the morning. - Discussed options for new daytime medication, patient declined. 05/13/2025 MDD (major depressive disorder), recurrent episode, moderate (ICD-10 - F33.1) Patient reports minimum amount of depression. Mood symptoms managed with mirtazapine and lorazepam. Declined new medications due to side effect concerns. - Continue mirtazapine 30 mg at bedtime. - Continue lorazepam as prescribed. 05/13/2025 Parkinson's disease, unspecified whether dyskinesia present, unspecified whether manifestations fluctuate (ICD-10 - G20.A1) Patient reports slowing down and movement issues. Memory problems since head injury June 19 last year. Parkinson's medications are helping. Neurologist involved in care. - Continue Parkinson's medications as prescribed. - Continue follow-up with neurology as needed. 05/13/2025 Chronic insomnia (ICD-10 - F51.04) Patient reports unrestful sleep and difficulty maintaining restful sleep. Sleep disturbance managed with mirtazapine at bedtime and lorazepam. - Continue mirtazapine 30 mg at bedtime. - Continue lorazepam as prescribed. Plan Of Treatment Medication Medication Name Sig Start Date Stop Date Notes Mirtazapine 30 MG Tablet 1 tablet at bed time Orally Once a day 04/02/2025 LORazepam 2 MG Tablet 1 tablet at bedtim e as needed Orally Once a day 04/02/2025 Treatment Notes Assessment Notes HAILEE (generalized anxiety disorder) Symptoms include persistent anxiety and physical stress. Patient is trying to arrange his day and manage irritability. Declined new medications due to concerns about side effects. Continues mirtazapine and lorazepam for anxiety. Propranolol taken in the morning, noted to help with anxiety. - Continue mirtazapine 30 mg at bedtime. - Continue lorazepam as prescribed. - Continue propranolol in the morning. - Discussed options for new daytime medication, patient declined. MDD (major depressive disord er), recurrent episode, moderate Patient reports minimum amount of depression. Mood symptoms managed with mirtazapine and lorazepam. Declined new medications due to side effect concerns. - Continue mirtazapine 30 mg at bedtime. - Continue lorazepam as prescribed. Parkinson's disease, unspeci fied whether dyskinesia present, unspecified whether manifestations fluctuate Patient reports slowing down and movement issues. Memory problems since head injury June 19 last year. Parkinson's medications are helping. Neurologist involved in care. - Continue Parkinson's medications as prescribed. - Continue follow-up with neurology as needed. Chronic insomnia Patient reports unrestful sleep and difficulty maintaining restful sleep. Sleep disturbance managed with mirtazapine at bedtime and lorazepam. - Continue mirtazapine 30 mg at bedtime. - Continue lorazepam as prescribed. Next Appt Details Follow Up: 3 months, Reason: Follow Up Provider Name:Muna Mccall elaine, 08/13/2025 09:00:00 AM, [address], [address], [place], [address], History and Physical Notes * HPI (History of Present Illness) Category Sub-Category Detail Notes Category Not es History of Presenting Problem Depression screening done Depression screening done Ronald Ventura, a 55-year-old male, presented for a chronic condition follow-up focused on his ongoing management of anxiety, depression, sleep disturbance, and Parkinson's disease. He described persistent anxiety and a minimum amount of depression, noting that he feels physically stressed while preparing for an upcoming pulmonoscopy. He expressed concerns about arranging his day appropriately and shared worries about becoming more irritable and scared with impending changes at home, particularly as his prepares to retire. He reflected on his fear of going outside, anxiousness about interacting with people, and the challenge of regaining consistency in his daily routine. Despite declining new medications such as Abilify and Prozac due to concerns about side effects, he continues to take mirtazapine and lorazepam for his mood symptoms. He reported previously taking buspirone and recently underwent a cognitive test, with results still pending. Contextually, he is retiring at the end of the year, has limited interaction with his due to her work schedule, and feels frustrated by these changes. He maci by turning on music, writing to-do lists (though sometimes forgetting), and is open to new routines and social activities, including studying Latin. Regarding sleep, he reported that he does not sleep well, describing his sleep as unrestful despite falling asleep. He takes mirtazapine at bedtime and uses lorazepam to help with sleep. His Parkinson's disease remains a significant concern, with symptoms of slowing down and movement issues, as well as memory problems following a head injury in May of last year. He voiced concerns about disease progression, referencing his twin brother's movement disorder and his own fear of being perceived as inactive. He feels his Parkinson's medications are helping and has a neurologist involved in his care. He noted previous fears of going outside, which have improved, and occasionally goes to the store, working on interacting with people and considering new routines. Additionally, he described intermittent hearing disturbances, including terrible hearing, pressure in his ears, and sounds that become loud and distorted. He can hear distant noises and has tried ear plugs without relief. Hyperactive hearing is noted in his chart. Elements of this documentation were generated using an AI-assisted entry level software developer or drafting tool. The clinician has personally reviewed, amended when appropriate, and attests that the final content accurately reflects the patient encounter, clinical findings, medical decision-making, and plan of care. The clinician accepts responsibility for the accuracy and completeness of the record. Depression screening PHQ-9 Little interest or pleasure in doing things: Not at all Feeling down, depressed, or hopeless: No t at all Trouble falling or staying asleep, or sl eeping too much: Several days Feeling tired or having little energy: N ot at all Poor appetite or overeating: Not at all Feeling bad about yourself o r that you are a failure, or have let yourself or your family down: More than half the days Trouble concentrating on thi ngs, such as reading the newspaper or watching television: Several days Moving or speaking so slowly that other people could have noticed; or the opposite, being so fidgety or restless that you have been moving around a lot more than usual: Not at all Thoughts that you would be b marvin off or of hurting yourself in some way: Not at all Total Score: 4 Interpretation: Minimal Depression Intervention Depression Screening Findings: P ositve Follow-Up for Depression: [facility] health care management, Psychiatric follow-up Suicide Risk Assessment Performed: 05/13 __ date Depression Screening HAILEE-7 (2018 Edition) Feelin g nervous, anxious, or on edge: Several days Not being able to stop or control worryi ng: Several days Worrying too much about different things : Several days Trouble relaxing: Several days Being so restless that it is hard to sit still: Not at all Becoming easily annoyed or irritable: Se veral days Feeling afraid as if something awful kendrick ht happen: Not at all Total HAILEE-7 Score: 5 If you checked any problems, how difficult have they made it for you to do your work, take care of things at home, or get along with other people?: Not difficult at all Interpretation of Total: (5 to 9) Mild [place]-Suicide Severity Rating Scale Suicide Risk (CSRS-screener) in the past one month Have you wished you were or wished you could go to sleep and not wake up?: No in the past one month Have y ou actually had any thoughts of killing yourself?: No Have you ever done anything, started to do anything, or prepared to do anything to end your life?: No Examination Category Sub-Category Detail Notes Category Not es Psychiatry Appearance: Well-groomed, appropriately dressed for age and weather. No unusual features or abnormalities noted. Behavior: Cooperative, calm, and attentive. No psychomotor agitation or retardation. Maintains appropriate eye contact. Speech: Normal rate, rhythm, volume, and articulation. Spontaneous and coherent. No latency or pressure of speech. Mood: Pt reports that he has some fear surrounding his retiring that the new routines that they will have to develop but patient does report some irritability surrounding the changes Affect: Appropriate to content and context. Full range, stable, congruent with stated mood. Thought Process: Linear, logical, goal-directed. No loosening of associations, tangentiality, or flight of ideas. Thought Content: No delusions, paranoia, obsessions, or preoccupations. Denies suicidal or homicidal ideation. Perceptions: No hallucinations (auditory, visual, or other). No perceptual disturbances. Cognition: Alert and oriented 4 (person, place, time, situation). Attention and concentration intact. Memory (recent and remote) intact. Insight: Good (aware of condition and need for treatment). Judgement: Intact (able to make sound decisions, understands consequences). Progress Notes * Ronald VENTURADOB: [birth year] (55 yo M)Acc No.[id number]:05/13/2025 Patient: Ronald Longoria Provider: Ayde Sosa :1970 A ge:55 Y S ex:Male Date:05/13/2025 Address:[address] [place], [place] [id number] Pcp:Ingrid Garcia DO Subjective: * Chief Complaints: * 5 week f/u * HPI: D epression Screening: HAILEE-7 (2018 Edition) F eeling nervous, anxious, or on edge S everal days N ot being able to stop or control worrying?Several days W orrying too much about different things S T rouble relaxing S B eing so restless that it is hard to sit still N ot at all B ecoming easily annoyed or irritable S F eeling afraid as if something awful might happen N ot at all T otal HAILEE-7 Score 5 I f you checked any problems, how difficult have they made it for you to do your work, take care of things at home, or get along with other people? N ot difficult at all I nterpretation of Total ( 5 to 9) Mild [place]-Suicide Severity Rating Scale: Suicide Risk (CSRS-screener) i n the past one month Have you wished you were or wished you could go to sleep and not wake up? N o i n the past one month Have you actually had any thoughts of killing yourself? N o H ave you ever done anything, started to do anything, or prepared to do anything to end your life? N o D epression screening: PHQ-9 L ittle interest or pleasure in doing things?Not at all F eeling down, depressed, or hopeless N ot at all T rouble falling or staying asleep, or sleeping too much S F eeling tired or having little energy N ot at all P oor appetite or overeating N ot at all F eeling bad about yourself or that you are a failure, or have let yourself or your family down M ore than half the days T rouble concentrating on things, such as reading the newspaper or watching television S M oving or speaking so slowly that other people could have noticed; or the opposite, being so fidgety or restless that you have been moving around a lot more than usual N ot at all T houghts that you would be better off or of hurting yourself in some way N ot at all T otal Score 4 I nterpretation M inimal Depression Intervention D epression Screening Findings P ositve F ollow-Up for Depression M ental health care management, Psychiatric follow-up S uicide Risk Assessment Performed 1 07/14/2024 __ date H istory of Presenting Problem: Elevated BP. Depression screening done Depression screening done Ronald Ventura, a 55-year-old male, presented for a chronic condition follow-up focused on his ongoing management of anxiety, depression, sleep disturbance, and Parkinson's disease. He described persistent anxiety and a minimum amount of depression, noting that he feels physically stressed while preparing for an upcoming pulmonoscopy. He expressed concerns about arranging his day appropriately and shared worries about becoming more irritable and scared with impending changes at home, particularly as his prepares to retire. He reflected on his fear of going outside, anxiousness about interacting with people, and the challenge of regaining consistency in his daily routine. Despite declining new medications such as Abilify and Prozac due to concerns about side effects, he continues to take mirtazapine and lorazepam for his mood symptoms. He reported previously taking buspirone and recently underwent a cognitive test, with results still pending. Contextually, he is retiring at the end of the year, has limited interaction with his due to her work schedule, and feels frustrated by these changes. He maci by turning on music, writing to-do lists (though sometimes forgetting), and is open to new routines and social activities, including studying Latin. Regarding sleep, he reported that he does not sleep well, describing his sleep as unrestful despite falling asleep. He takes mirtazapine at bedtime and uses lorazepam to help with sleep. His Parkinson's disease remains a significant concern, with symptoms of slowing down and movement issues, as well as memory problems following a head injury in May of last year. He voiced concerns about disease progression, referencing his twin brother's movement disorder and his own fear of being perceived as inactive. He feels his Parkinson's medications are helping and has a neurologist involved in his care. He noted previous fears of going outside, which have improved, and occasionally goes to the store, working on interacting with people and considering new routines. Additionally, he described intermittent hearing disturbances, including terrible hearing, pressure in his ears, and sounds that become loud and distorted. He can hear distant noises and has tried ear plugs without relief. Hyperactive hearing is noted in his chart. Elements of this documentation were generated using an AI-assisted entry level software developer or drafting tool. The clinician has personally reviewed, amended when appropriate, and attests that the final content accurately reflects the patient encounter, clinical findings, medical decision-making, and plan of care. The clinician accepts responsibility for the accuracy and completeness of the record. * ROS: C onstitutional: denies fever, chills, weight changes HEENT: denies vision changes, hearing issues, congestion, sore throat Cardiovascular:denies chest pain, palpitations, edema Respiratory:denies cough, shortness of breath, wheezing GI:denies abdominal pain, nausea, vomiting, diarrhea, constipation : denies dysuria, frequency, urgency, hematuria Musculoskeletal:denies joint pain, muscle aches, stiffness Neurological:denies dizziness, weakness, numbness, tingling Skin:denies rash, itching, lesions Endocrine: d enies heat/cold intolerance, polyuria, polydipsia Hematologic:denies bruising or bleeding Allergic/Immunologic: denies allergies or recurrent infections. * Medical History: Past Psychiatric History: Anxiety Disorder,Panic Disorder Parkinson's disease: Yes subdural hematoma: Yes Generalized anxiety disorder Major depressive disorder, mild Chronic insomnia Parkinson's disease, diagnosed six years ago Memory problems since head injury june 19 last year Medical History Verified * Surgical History: spine surgery/disc replaced and tumor removal 1991 Surgical History verified. * Hospitalization/Major Diagno stic Procedure: hit head w/head injury and bleeds 06/02/22 Hospitalization Verified. * Family History: F ather: . M other: . 1 daughter(s) . . F amily History Verified.. adopted daughter 2021. * Social History: T obacco Use: T obacco Control (Standard) T obacco use: F ormer smoker D rug/Alcohol: D rugs H ave you used drugs other than those for medical reasons in the past 12 months? N o Caffeine I ntake: 1 -2 cups per day Do you smoke marijuana?: uses CBD vape occasionally. AUDIT-C (Standard) D id you have a drink containing alcohol in the past year? N o S ocial History Verified. O ccupation: Retiring at end of year Living situation: Lives with , limited interaction due to her work schedule. * Medications: T akingPropranolol HCl 10 MG Tablet Oral Meloxicam 15 MG Tablet Oral Primidone 50 MG Tablet Oral Carbidopa-Levodopa 25-100 MG Tablet Oral Omeprazole 40 MG Capsule Delayed Release Oral LORazepam 2 MG Tablet 1 tablet at bedtime as needed Orally Once a day Mirtazapine 30 MG Tablet 1 tablet at bedtime Orally Once a day Medication List reviewed and reconciled with the patientTaking Propranolol HCl 10 MG Tablet Oral Taking Meloxicam 15 MG Tablet Oral Taking Primidone 50 MG Tablet Oral Taking Carbidopa-Levodopa 25-100 MG Tablet Oral Taking Omeprazole 40 MG Capsule Delayed Release Oral Taking LORazepam 2 MG Tablet 1 tablet at bedtime as needed Orally Once a day Taking Mirtazapine 30 MG Tablet 1 tablet at bedtime Orally Once a day Medication List reviewed and reconciled with the patient * Allergies: C efaclorErythromycinClindamycinadhesivePropofolGabapentintraMADolPregabalinyesAll ergies Verified. Objective: * Vitals: B P:123/93mm Hg, HR:79/min, Wt:175.4lbs, Wt-k.56 kg, Ht: 72 in, Ht-cm: 182.88 cm, BMI:23.79Index, Body Surface Area: 2.01. * Examination: P sychiatry: A ppearance: Well-groomed, appropriately dressed for age and weather. No unusual features or abnormalities noted. Behavior: Cooperative, calm, and attentive. No psychomotor agitation or retardation. Maintains appropriate eye contact. Speech: Normal rate, rhythm, volume, and articulation. Spontaneous and coherent. No latency or pressure of speech. Mood: Pt reports that he has some fear surrounding his retiring that the new routines that they will have to develop but patient does report some irritability surrounding the changes Affect: Appropriate to content and context. Full range, stable, congruent with stated mood. Thought Process: Linear, logical, goal-directed. No loosening of associations, tangentiality, or flight of ideas. Thought Content: No delusions, paranoia, obsessions, or preoccupations. Denies suicidal or homicidal ideation. Perceptions: No hallucinations (auditory, visual, or other). No perceptual disturbances. Cognition: Alert and oriented 4 (person, place, time, situation). Attention and concentration intact. Memory (recent and remote) intact. Insight: Good (aware of condition and need for treatment). Judgement: Intact (able to make sound decisions, understands consequences). Assessment: * Assessment: 1. G AD (generalized anxiety disorder) - F41.1 (Primary) 2 . M DD (major depressive disorder), recurrent episode, moderate - F33.1 3 . P arkinson's disease, unspecified whether dyskinesia present, unspecified whether manifestations fluctuate - G20.A1 4 . C hronic insomnia - F51.04 Plan: * Treatment: 2. M DD (major depressive disorder), recurrent episode, moderate Continue Mirtazapine Tablet, 30 MG, 1 tablet at bedtime, Orally, Once a day. Notes: Patient reports minimum amount of depression. Mood symptoms managed with mirtazapine and lorazepam. Declined new medications due to side effect concerns. - Continue mirtazapine 30 mg at bedtime. - Continue lorazepam as prescribed. 3. P arkinson's disease, unspecified whether dyskinesia present, unspecified whether manifestations fluctuate Notes: Patient reports slowing down and movement issues. Memory problems since head injury June 19 last year. Parkinson's medications are helping. Neurologist involved in care. - Continue Parkinson's medications as prescribed. - Continue follow-up with neurology as needed. 4. C hronic insomnia Notes: Patient reports unrestful sleep and difficulty maintaining restful sleep. Sleep disturbance managed with mirtazapine at bedtime and lorazepam. - Continue mirtazapine 30 mg at bedtime. - Continue lorazepam as prescribed. * Procedure Codes: [id number] BEHAV ASSMT W/SCORE & DOCD/STAND INSTRUMENT * Preventive Medicine: Counseling: B P Management: PRE-HYPERTENSIVE FOLLOW-UP PLAN: F ollow-up 2-3 months LIFESTYLE RECOMMENDATION: Guillaume hutchins education REFERRAL TO ALTERNATIVE / PRIMARY CARE PROVIDER: Martha colesal to general physician Screenings: D epression screening Have you had a recent depression screening? Y es P atient Understanding & Engagement: Patient demonstrated good understanding of the information discussed. Time was taken to clarify questions and ensure comprehension. Patient expressed interest in participating in treatment plan. Patient encouraged to follow up regularly and engage in therapeutic recommendations. Will continue to monitor progress and provide ongoing support. Patient given opportunity to contact provider if issues arise between sessions. * Follow Up: 3 months (Reason: Follow Up) Billing Information: * Visit Code: 83111 OFFICE OUTPATIENT VISIT 15 MINUTES EXPANDED HISTORY AND EXAM/LOW MEDICAL DECISION MAKING. * Procedure Codes: 24966 BEHAV ASSMT W/SCORE & DOCD/STAND INSTRUMENT. * ERENCE SPECIALIST Sign off status: Completed true * Provider: Ayde Sosa Date: 07/14/2024 Generated for Gregoria bowser/[place] on: 07/15/2024 01:02 AM CONFERENCE SPECIALIST
--- OUTSIDE RECORDS SUMMARY | 2025-05-14 01:03 | XMS_ITS | Clinical Summary ---
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
--- OUTSIDE RECORDS SUMMARY | 2025-05-14 01:03 | XMS_ITS | Clinical Summary ---
Author Organization [facility] Address [address] [facility] [place] [address] Care Team Providers Care Combination Saw Operator Name Role Phone Barber Prakash MD Primary Care Provider + Source Comments [facility],non-owned Affiliates and Associated Physician Practices is amultiple site organization consisting of ambulatory clinics and hospital sitesin [place], [place], [place] and [place]. This disclosure is being madepursuant to the Care Everywhere program and may not contain all information available regarding this patient. Last updated 18.[facility] Allergies Active Allergy Reactions Criticality Noted Date Comments Augmentin Anaphylaxis High 02/24/2018 Cefaclor Anaphylaxis High 02/24/2018 Clindamycin Anaphylaxis High 02/24/2018 Gabapentin Other 06/02/2022 Pregabalin Other 06/02/2022 Propofol Anaphylaxis High 02/24/2018 Propranolol Elevated Blood Pressure Medium 02/24/2018 Skin Adhesives Other 06/02/2022 Medications * This document contains information received from the source organization and may not represent a complete record from that organization. * Be aware that medications may not be up to date on this document. Alwaysverify current medications with the patient. naproxen sodium (Aleve) 220 MG tablet Take 1 (one) tablet by mouth 2 times daily Active Multiple Vitamins-Mine rals (MULTIVITAMIN ADULT) CHEW Active Probiotic Product CHEW Active LORazepam (ATIVAN) 1 MG tablet Take 1 (one) tablet by mouth once daily 08/12/19 22 Active carbidopa-lev odopa (SINEMET) 25-100 MG tabletIndicat ions:Parkinso n's Disease Take 2 (two) tablets by mouth 4 times daily for 90 days Reasons: Parkinson's Disease 540 tablet 3 09/28/19 22 Active dicyclomine (Bentyl) 20 MG tablet Take 1 (one) tablet by mouth 3 times daily Active acetaminophen (Tylenol) 325 MG tablet Take 2 (two) tablets by mouth every 6 hours as needed Maximum allowable Acetaminophen amount = 4 Grams (4000 mg) / 24 hours. 06/03/19 23 Active busPIRone (Buspar) 10 MG tablet 10/26/19 25 Active escitalopram (Lexapro) 5 MG tablet 07/29/19 25 Active meloxicam (Mobic) 15 MG tablet 11/15/19 25 Active carbidopa-lev odopa (Sinemet) 25-100 MG tabletIndicat ions:Parkinso n's Disease Take 2 (two) tablets by mouth 4 times daily Reasons: Parkinson's Disease 540 tablet 3 12/26/19 25 026 Active primidone (Mysoline) 50 MG tabletIndicat ions:Essentia l Tremor Take 3 (three) tablets by mouth 3 times daily Reasons: Fine to Coarse Slow Tremor Affecting Head, Hands & Voice 810 tablet 3 12/26/19 25 Active carbidopa-lev odopa (Sinemet) 25-100 MG tabletIndicat ions:Parkinso n's Disease Take 2.5 (two and one-half) tablets by mouth 4 times daily Reasons: Parkinson's Disease 900 tablet 3 12/26/19 25 Active propranolol (Inderal) 10 MG tabletIndicat ions:Tremor TAKE 1 TABLET BY MOUTH TWICE DAILY FOR FEELING ANXIOUS, FINE TO COARSE SLOW TREMOR AFFECTING HEAD, HANDS AND VOICE 180 tablet 3 05/11/20 25 Active propranolol (Inderal) 10 MG tabletIndicat ions:Tremor TAKE 1 TABLET BY MOUTH 2 TIMES DAILY FOR FEELING ANXIOUS, FINE TO COARSE SLOW TREMOR AFFECTING HEAD, HANDS & VOICE 180 tablet 3 08/05/19 25 025 Discontinued Active Problems Problem Noted Date Diagnosed Date Intracranial hemorrhage 06/02/2022 Fall, initial encounter 06/02/2022 Closed fracture of temporal bone 06/02/2022 ETOH abuse 09/27/2021 Nicotine dependence 09/27/2021 Anxiety 09/27/2021 Benign essential tremor 01/21/2019 Parkinson disease 01/21/2019 Tremor 11/18/2018 Parkinson's disease 11/18/2018 Sensation of fullness in both ears 02/24/2018 Encounters * This document contains information received from the source organization and may not represent a complete record from that organization. Date Type Department Care Team Description 05/10/2025 Refill [facility] - Neurology [address] [facility], [place] [address] Manohar Estrella MD Refill Request 04/28/2025 Travel from Last 3 Months Immunizations Immunization Administration Dates Next Due FLU VACCINE TRI IIV3 SPLIT I M (FLUVIRIN) 04/12/2021,04/24/2016,02/24/2014,2012 INFLUENZA VACCINE, QUADR. (F LUZONE; FLULAVAL; FLUARIX; AFLURIA QUADRIVALENT; 6MO+), 0.5 ML (IIV4) 04/09/2022,01/07/2020,03/12/2018 INFLUENZA VACCINE, TRIV. (FL UZONE; FLULAVAL; FLUARIX; AFLURIA TRIVALENT; 6MO+), 0.5 ML (IIV3) 03/16/2015 Zoster Hzv Vacc Recombinant Inj Im 04/09/2020, Family History Medical History Relation Name Comments Anxiety Disorder Brother Arthritis - Rheumatoid Brother Cancer - Other Brother Osteoporosis Brother Other - Neurologic Brother Tremor Cancer - Other Father Relation Name Status Comments Brother Father Social History Tobacco Use Types Packs/Day Years Used Date Smoking Tobacco: Former Cigarettes 1 11 0 12/25/2010 - 12/25/2021 Smokeless Tobacco: Never Tobacco Cessation:Counseling Given: No Comments:Pt hasn't smoked in 8 months Alcohol Use Standard Drinks/Week Comments Not Currently 0 (1 standard drink = 0.6 oz pur e alcohol) occasionally Hunger Vital Sign Answer Date Recorded Within the past 12 months, y ou worried that your food would run out before you got the money to buy more. Never true 06/03/19 23 Within the past 12 months, t he food you bought just didn't last and you didn't have money to get more. Never true 06/03/2022 Sex and Gender Information Value Date Recorded Sex Assigned at Not on file Legal Sex Male 9:51 AM CDT Gender Identity Not on file Sexual Orientation Not on file Last Filed Vital Signs Vital Sign Reading Time Taken Comments Blood Pressure 126/75 12/25/2024 10:02 AM CDT Pulse 70 12/25/2024 10:02 AM CDT Temperature 36.6 C (97.8 F) 01/15/2023 2:31 PM CDT Respiratory Rate 18 07/25/2022 12:33 PM MICROFILM EQUIPMENT INSPECTOR Oxygen Saturation 97% 12/25/2024 10:02 AM CDT Inhaled Oxygen Concentration - - Weight 73.9 kg (163 lb) 12/25/2024 10:02 AM CDT Height 180.3 cm (5' 11) 12/25/2024 10:02 AM CDT Body Mass Index 22.73 12/25/2024 10:02 AM CDT Plan of Treatment Health Maintenance Due Date Last Done Comments COLOGUARD (AGES 45-75) - COLON CA SCREENING 1969 COLON MONITORING 1969 COLONOSCOPY - COLON CA SCREENING 1969 CT COLONOGRAPHY - COLON CA SCREENING 1969 Colorectal Cancer Screening 1969 FIT - COLON CA SCREENING 1969 FLEX SIG - COLON CA SCREENING 1969 LIPID TESTING 1969 MEDICARE AWV 12 MONTHS 1969 HEPATITIS C SCREENING 01/09/1987 DTAP/TDAP/TD VACCINES (1 - Tdap) 01/14/1988 HEPATITIS B VACCINE (1 of 3 - 19+ 3-dose series) 01/14/1988 PNEUMOCOCCAL VACCINE 50+ (1 of 1 - PCV) 2019 DEPRESSION SCREENING 05/27/2024 COVID-19 VACCINE (3 - 2024- season) 2025 09/30/2020, 09/09/2020 INFLUENZA VACCINE (#1) 2025 2, 04/12/2021, 01/07/2020, Additional history exists ZOSTER VACCINE Completed 04/09/2020, 01/07/2020 HIV SCREENING Completed 06/02/2022 HIB VACCINE Aged Out No longer eligi ble based on patient's age to complete this topic HPV VACCINE Aged Out No longer eligi ble based on patient's age to complete this topic MENINGOCOCCAL (Group B) VACCINE SHARED DECISION-MAKING Aged Out No longer eligible based on patient's age to complete this topic MENINGOCOCCAL GROUPS A/C/Y/W VACCINE Aged Out No longer eligible based on patient's age to complete this topic Procedures Procedure Name Priority Date/Time Associated Diagnosis Comments HIV-1 HIV-2 ANTIBODY + HIV P24 AG PANEL STAT 06/02/2022 5:54 PM MICROFILM EQUIPMENT INSPECTOR from Last 3 Months or Most Recently Relevant to Health Maintenance Results * HIV-1 HIV-2 ANTIBODY + HIV P24 AG PANEL (06/02/2022 5:54 PM MICROFILM EQUIPMENT INSPECTOR) HIV Antigen/Antibod y 1 & 2 Non-reacti ve Non-react macho 06/02/2022 6:53 PM MICROFILM EQUIPMENT INSPECTOR [facility] Comment:No Laboratory eviden ce of HIV infection. Blood BLOOD SPECIMEN / Unknown Venipuncture / Unknown 06/02/2022 5:54 PM MICROFILM EQUIPMENT INSPECTOR 06/02/2022 5:59 PM MICROFILM EQUIPMENT INSPECTOR us Herve Alexander MD LAB - CHEMISTRY ORDERABLES Fi nal Result [facility] [address] [place] [id number], [facility] [phone] from Last 3 Months or Most Recently Relevant to Health Maintenance Insurance MEDICARE [facility] CARE MEDICARE [facility] CARE MEDICARE Advance Directives * Full Code (Latest Code Status on File) Date Activated Date Inactivated Comments 06/02/2022 7:25 PM 06/03/2022 6:36 PM Care Teams Combination Saw Operator Relationship Specialty Start Date End Date Barber Prakash MD [address] [address] PCP - General 02/20/18
--- OUTSIDE RECORDS SUMMARY | 2025-05-14 01:03 | XMS_ITS | Patient Health Record ---
Author Organization [facility] Address [address] [place] [address] Care Team Providers Care Airborne Missions Systems Name Role Phone Ingrid Garcia DO Primary Care Provider UnavailMuna Pringle Unavailable [phone] SheilaAnastasiia Unavailable [phone] Allergies Allergen (clinical drug ingredient) Drug/Non Drug [...] Active tramadol traMADol Unknown Drug Allergy Active Results Component Value Reference Range Notes UDT Reviewed date:01/28/2025 10:01:17 AM Interpretation: Performing Lab: Notes/Report: Amphetamine (AMP) n 0 - 1000 ng/ml Buprenorphine (BUP) n 0 - 10 ng/ml Oxazepam (BZO) p 0 - 300 ng/ml Cocaine (VU) n 0 - 300 ng/ml Methamphetamine (mAMP) n 0 - 300 ng/ml Methylenedioxymethamphetamine (MDMA) n 0 - 500 ng/ml Morphine (MOP) n 0 - 25 ng/ml Methadone (MTD) n 0 - 300 ng/ml Oxycodone (OXY) n 0 - 300 ng/ml THC n 0 - 50 ng/ml x n 0 - 1000 ng/ml x n 0 - 1000 ng/ml x n 0 - 300 ng/ml x n 0 - 300 ng/ml Reason For Referral No Information Medications Medication SIG (Take, Route, Frequency, Duration) Notes Start Date End Date Status LORazepam 2 MG Tablet 1 tablet at bedtim e as needed Orally Once a day 04/02/2025 Active Mirtazapine 30 MG Tablet 1 tablet at bed time Orally Once a day; Duration: 90 days Active Propranolol HCl 10 MG Tablet Oral; Duration: 90 Days Acti ve Meloxicam 15 MG Tablet Oral; Duration: 90 Days Active Primidone 50 MG Tablet Oral; Duration: 90 Days Active Carbidopa-Levodopa 25-100 MG Tablet Oral; Duration: 90 Days Acti ve Omeprazole 40 MG Capsule Delayed Release Oral; Duration: 90 Days A ctive Social History Tobacco Use: Social History Observation [...] limited interaction due to her work schedule Problems Problem Type SNOMED Code ICD Code Onset Dates Problem Status W/U Status Risk Notes Problem Generalized anxiety disorder (06036644) HAILEE (generalized anxiety disorder) (F41.1) Active confirmed Problem Moderate recurrent major depression (67823750) MDD (major depressive disorder), recurrent episode, moderate (F33.1) Active confirmed Problem Chronic insomnia (208205310) Chronic insomnia (F51.04) Active confirmed Problem Parkinson's disease (disorder) (73230822) Parkinson's disease, unspecified whether dyskinesia present, unspecified whether manifestations fluctuate (G20.A1) Active confirmed Vital Signs Heart Rate 79 /min 05/13/2025 Height-cm 182.88 cm 05/13/2025 Blood pressure diastolic 93 mm Hg 05/13/2025 Weight-kg 79.56 kg 05/13/2025 Height 72 in 05/13/2025 Blood pressure systolic 123 mm Hg 05/13/2025 Weight 175.4 lbs 05/13/2025 BMI 23.79 kg/m2 05/13/2025 Encounters Encounter Location Date Provider Diagnosis [address] [address] 01/28/2025 Muna Kurilla HAILEE (generalized anxiety disorder) F41.1 ; MDD (major depressive disorder), recurrent episode, moderate F33.1 ; Chronic insomnia F51.04 and Parkinson's disease, unspecified whether dyskinesia present, unspecified whether manifestations fluctuate G20.A1 [address] [address] 02/19/2025 Muna Kurilla HAILEE (generalized anxiety disorder) F41.1 ; MDD (major depressive disorder), recurrent episode, moderate F33.1 ; Chronic insomnia F51.04 and Parkinson's disease, unspecified whether dyskinesia present, unspecified whether manifestations fluctuate G20.A1 [address] [address] 04/02/2025 Mnua Kurilla HAILEE (generalized anxiety disorder) F41.1 ; MDD (major depressive disorder), recurrent episode, moderate F33.1 ; Chronic insomnia F51.04 and Parkinson's disease, unspecified whether dyskinesia present, unspecified whether manifestations fluctuate G20.A1 [address] [address] 05/13/2025 Anastasiia Sheila HAILEE (generalized anxiety disorder) F41.1 ; MDD (major depressive disorder), recurrent episode, moderate F33.1 ; Parkinson's disease, unspecified whether dyskinesia present, unspecified whether manifestations fluctuate G20.A1 and Chronic insomnia F51.[address] [address] 02/03/2025 Umna Kurilla MDD (major depressiv e disorder), recurrent episode, moderate F33.1 Assessments Encounter Date Diagnosis (ICD Code) Assessment Notes Treatment Notes Treatment Clinical Notes Section Notes 01/28/2025 HAILEE (generalized anxiety disorder) (ICD-10 - F41.1) Generalized Anxiety Disorder - new onset, partial response to buspirone, prominent cognitive side effects. Major Depressive Episode - depressive symptoms with appetite loss and weight reduction. Insomnia - difficulty initiating sleep. Parkinson's disease with tremor - managed by neurology. Medication side effect: cognitive slowing likely related to buspirone. 01/28/2025 MDD (major depressive disorder), recurrent episode, moderate (ICD-10 - F33.1) Generalized Anxiety Disorder - new onset, partial response to buspirone, prominent cognitive side effects. Major Depressive Episode - depressive symptoms with appetite loss and weight reduction. Insomnia - difficulty initiating sleep. Parkinson's disease with tremor - managed by neurology. Medication side effect: cognitive slowing likely related to buspirone. 02/03/2025 MDD (major depressive disorder), recurrent episode, moderate (ICD-10 - F33.1) 02/19/2025 HAILEE (generalized anxiety disorder) (ICD-10 - F41.1) 02/19/2025 MDD (major depressive disorder), recurrent episode, moderate (ICD-10 - F33.1) 04/02/2025 HAILEE (generalized anxiety disorder) (ICD-10 - F41.1) Lorazepam per PCP 05/13/2025 HAILEE (generalized anxiety disorder) (ICD-10 - [...] - Continue follow-up with neurology as needed. 04/02/2025 MDD (major depressive disorder), recurrent episode, moderate (ICD-10 - F33.1) 02/19/2025 Chronic insomnia (ICD-10 - F51.04) 01/28/2025 Chronic insomnia (ICD-10 - F51.04) Generalized Anxiety Disorder - new onset, partial response to buspirone, prominent cognitive side effects. Major Depressive Episode - depressive symptoms with appetite loss and weight reduction. Insomnia - difficulty initiating sleep. Parkinson's disease with tremor - managed by neurology. Medication side effect: cognitive slowing likely related to buspirone. 01/28/2025 Parkinson's disease, unspecified whether dyskinesia present, unspecified whether manifestations fluctuate (ICD-10 - G20.A1) Generalized Anxiety Disorder - new onset, partial response to buspirone, prominent cognitive side effects. Major Depressive Episode - depressive symptoms with appetite loss and weight reduction. Insomnia - difficulty initiating sleep. Parkinson's disease with tremor - managed by neurology. Medication side effect: cognitive slowing likely related to buspirone. 02/19/2025 Parkinson's disease, unspecified whether dyskinesia present, unspecified whether manifestations fluctuate (ICD-10 - G20.A1) 04/02/2025 Chronic insomnia (ICD-10 - F51.04) 05/13/2025 Chronic insomnia (ICD-10 - F51.04) Patient reports unrestful sleep and difficulty maintaining restful sleep. Sleep disturbance managed with mirtazapine at bedtime and lorazepam. - Continue mirtazapine 30 mg at bedtime. - Continue lorazepam as prescribed. 04/02/2025 Parkinson's disease, unspecified whether dyskinesia present, unspecified whether manifestations fluctuate (ICD-10 - G20.A1) 01/28/2025 Other Decrease buspar to 5mg qHS, intent to wean off as could be contributing to brain fog, cognitive slowing. Continue lorazepam 2mg qHS PRN for sleep, discussed I hesitate to increase dose due to risks terminologist associated with benzos, falls. Start mirtazapine 15mg qHS for anxiety, mood support. Can also help with insomnia, appetite. Patient educated on all medications including potential benefits, side effects, risks. Educated on proper dosing schedule and importance of compliance. Has neuropych apt Dec 2. Support group resource provided -Assessment and treatment plan reviewed with patient. -Compliance with treatment plan importance discussed. -Discussed the risks/benefits of this medication -Discussed medication side effects. -Contact office if symptoms worsen. -Discussed that it can take up to 6-8 weeks to see full therapeutic effects of psychotropic medications. -Crisis prevention hotline 988. Generalized Anxiety Disorder - new onset, partial response to buspirone, prominent cognitive side effects. Major Depressive Episode - depressive symptoms with appetite loss and weight reduction. Insomnia - difficulty initiating sleep. Parkinson's disease with tremor - managed by neurology. Medication side effect: cognitive slowing likely related to buspirone. 02/19/2025 Other Discontinue buspar Increase mirtazapine 30mg daily for mood, anixety Patient educated on all medications including potential benefits, side effects, risks. Educated on proper dosing schedule and importance of compliance. Supportive therapy provided -Assessment and treatment plan reviewed with patient. -Compliance with treatment plan importance discussed. -Discussed the risks/benefits of this medication -Discussed medication side effects. -Contact office if symptoms worsen. -Discussed that it can take up to 6-8 weeks to see full therapeutic effects of psychotropic medications. -Crisis prevention hotline 988. 04/02/2025 Other Stable, continue mirtazapine 30mg qHS -refill sent in today Patient educated on all medications including potential benefits, side effects, risks. Educated on proper dosing schedule and importance of compliance. states she plans to have PCP take over lorazepam script, as educated our office policy we can not send controlled substances to mail order pharmacy Discussed transfer of care to [facility]. -Assessment and treatment plan reviewed with patient. -Compliance with treatment plan importance discussed. -Discussed the risks/benefits of this medication -Discussed medication side effects. -Contact office if symptoms worsen. -Discussed that it can take up to 6-8 weeks to see full therapeutic effects of psychotropic medications. -Crisis prevention hotline 988. Plan Of Treatment Next Appt Details Provider Name:Muna henry, 08/13/2025 09:00:00 AM, [address], [facility] [address], [place], [address], Insurance Providers Payer Name Payer Address Payer Phone Subscriber Number Group Number Insured Name Patient Relationship to Insured Coverage Start Date Coverage End Date [facility] [address] [place] [address] [id number] Ronald Ventura Self - patient is the insured [place] [address] [place] [phone] [id number] Ronald Ventura Self - patient is the insured Medical (General) History Medical History History ICD Code Past Psychiatric History: Anxiety Disord er,Panic Disorder Parkinson's disease: Yes subdural hematoma: Yes Generalized anxiety disorder Major depressive disorder, mild Chronic insomnia Parkinson's disease, diagnosed six years ago Memory problems since head injury last year Surgical History Surgery Date(Month/Year) spine surgery/disc replaced and tumor re moval 1991 Hospitalization History Reason Date(Month/Year) hit head w/head injury and bleeds 06/02/22
[2025-05-14 07:00] VITALS: BP 103/65; PULSE 77; RESP 16; TEMP 36.1; O2SAT 97
[2025-05-14] MEDS: LACTATED RINGERS 1,000 ML 150 ML IV CONT (07:13)
--- NOTE | 2025-05-14 07:39 | WPDANESEPPF ---
Anes - Initial Pre Proc Eval Procedure: Operation Date: 05/14/25 08:30 Proposed Procedures p EGD & Screening Colonoscopy - Marcus Tamayo MD Date/Time: 05/14/25 07:39 Surgeon: Marcus Tamayo MD Pre Op Diagnosis: Screening, GERD Patient Data Age: 55 Gender: M Height: 1.8 m Weight: 78.2 kg Last Vital Signs Temp 97 F L 05/14/25 07:00 Pulse 77 05/14/25 07:00 Resp 16 05/14/25 07:00 BP 103/65 05/14/25 07:00 Pulse Ox 97 05/14/25 07:00 O2 Del Method Room Air 05/14/25 07:00 Allergies Allergy/AdvReac Type Severity Reaction Status Date / Time clindamycin Allergy Severe Hives Verified 05/14/25 06:59 gabapentin Allergy Severe Swelling Verified 05/14/25 06:59 of Lip/Tongue/Throat pregabalin Allergy Severe Swelling Verified 05/14/25 06:59 of Lip/Tongue/Throat propofol Allergy Severe Anaphylactic Verified 05/14/25 06:59 Shock erythromycin base Allergy Intermediate Difficulty Verified 05/14/25 06:59 Breathing adhesive Allergy Rash Verified 05/14/25 06:59 cefaclor AdvReac Intermediate Vomiting Verified 05/14/25 06:59 trazodone AdvReac Intermediate Other Verified 05/14/25 06:59 Home Medications ?Medication ?Instructions ?Recorded ?Confirmed ?Type carbidopa 25 mg-levodopa 100 mg 2 tablet PO QID 03/01/20 05/14/25 History tablet primidone 50 mg tablet 150 mg PO BID 03/01/20 05/14/25 History propranolol 10 mg tablet 10 mg PO BID 06/02/22 05/14/25 History dicyclomine 20 mg tablet 20 mg PO TID PRN Abdominal 06/19/22 04/26/25 Rx Discomfort #270 tabs ipratropium bromide 21 mcg (0.03 2 spray intranasal .prn PRN 03/07/23 04/26/25 History %) nasal spray Allergy Symptoms lorazepam 2 mg tablet 2 mg PO QHS #90 tabs 12/02/24 05/14/25 Rx meloxicam 15 mg tablet 15 mg PO DAILY #90 tabs 12/02/24 05/14/25 Rx hydrocodone 5 mg-acetaminophen 325 1 tablet PO Q8H PRN pain #30 tabs 03/02/25 04/26/25 Rx mg tablet mirtazapine 30 mg tablet 30 mg PO QHS 03/02/25 05/14/25 History omeprazole 40 mg capsule,delayed 40 mg PO BID #180 caps 03/16/25 05/14/25 Rx release Patient hx anesthesia problems: none Family hx anesthesia problems: none Results Review: All pre-operative results and documents have been reviewed as part of the pre-operative evaluation. [facility] Past Medical History Medical History Generalized anxiety disorder History of tobacco use disorder Ureteral calculus, right (2011) Surgical History Surgical History History of arthroscopy of right shoulder (11/26/23) Biceps tenodysis, SLAP tear, subacromial decompression Hx of neck surgery Hx of appendectomy (2003) Hx of hemorrhoidectomy (2013) Hx of tonsillectomy H/O carpal tunnel repair Hx of cystoscopy Family History Family History Sibling Carcinoma of colon Social History Social History Smoking packs per day: 1 Smoking cigarettes per day: 20.0 Years smoked: 8 Smoking pack-years: 8.00 Smoking status: Former smoker Tobacco type: cigarettes Second hand tobacco smoke exposure: No Smoking end date: 01/13/22 Alcohol intake: former Alcohol use details: Drinks several beers per day Substance use: never Substance use type: does not use Other substance usage details: CBD ORAL DROPS FOR TREMORS Lack of Transportation: No Lack of Food: Never True Current Housing: I Have Housing Concerned About Future Housing: No Difficulty Paying Gas/Electric Bills: No Difficulty Paying for Meds: No Currently Unemployed: No Education: Decline to Answer Difficulty w/ Childcare or Family Care: No Living arrangements: with family Additional occupation/education comments: Disability Gender identity (if verbalized by the patient): Male Sexual Orientation (if Verbalized by the Patient): Straight or Heterosexual Spiritual care concerns: No Anes - Eval Final PreProcedure Day of Procedure 05/14/25 07:39 Patient weight: normal Lungs: normal air movement Airway: Mallampati scale class II and special considerations (R upper incisor implanted approx 1 year ago. ) Neurological: alert and oriented Last oral intake: >/= 8 hours ASA classification: III Emergent: no Anesthetic plan: proceed Anesthesia type and monitoring: general GIVS and standard monitoring Results Review: All pre-operative results and documents have been reviewed as part of the pre-operative evaluation. Parkinsons disease, ex smoker, hx HTN, anxiety. Propofol allergy noted, pt has done well w etomidate/midaz/fent in the past. Informed Consent: The patient's anesthetic plan and its attendant risks and benefits were discussed with the patient/family/POA. Questions were solicited and answers provided to the satisfaction of the patient/family/POA.
--- NOTE | 2025-05-14 08:00 | PM.HPGS ---
History of Present Illness History of Present Illness Consent: Risks, benefits, and alternatives have been discussed and questions answered. Patient agrees to proceed with procedure. Chief complaint: Screening, GERD Narrative: Ronald Ventura is a 55 year old male here for first EGD because gerd on ppi daily, last colonoscopy 5 years ago- brother had colon cancer Review of Systems Review of Systems: All systems reviewed & are unremarkable except as noted in HPI and below PMFSH Past Medical History Medical History Generalized anxiety disorder History of tobacco use disorder Ureteral calculus, right (2011) Surgical History Surgical History History of arthroscopy of right shoulder (11/26/23) Biceps tenodysis, SLAP tear, subacromial decompression Hx of neck surgery Hx of appendectomy (2003) Hx of hemorrhoidectomy (2013) Hx of tonsillectomy H/O carpal tunnel repair Hx of cystoscopy Family History Family History Sibling Carcinoma of colon Social History Social History Smoking packs per day: 1 Smoking cigarettes per day: 20.0 Years smoked: 8 Smoking pack-years: 8.00 Smoking status: Former smoker Tobacco type: cigarettes Second hand tobacco smoke exposure: No Smoking end date: 01/13/22 Alcohol intake: former Alcohol use details: Drinks several beers per day Substance use: never Substance use type: does not use Other substance usage details: CBD ORAL DROPS FOR TREMORS Lack of Transportation: No Lack of Food: Never True Current Housing: I Have Housing Concerned About Future Housing: No Difficulty Paying Gas/Electric Bills: No Difficulty Paying for Meds: No Currently Unemployed: No Education: Decline to Answer Difficulty w/ Childcare or Family Care: No Living arrangements: with family Additional occupation/education comments: Disability Gender identity (if verbalized by the patient): Male Sexual Orientation (if Verbalized by the Patient): Straight or Heterosexual Spiritual care concerns: No Meds Home Medications and Allergies Home Medications ?Medication ?Instructions ?Recorded ?Confirmed ?Type carbidopa 25 mg-levodopa 100 mg 2 tablet PO QID 03/01/20 05/14/25 History tablet primidone 50 mg tablet 150 mg PO BID 03/01/20 05/14/25 History propranolol 10 mg tablet 10 mg PO BID 06/02/22 05/14/25 History dicyclomine 20 mg tablet 20 mg PO TID PRN Abdominal 06/19/22 04/26/25 Rx Discomfort #270 tabs ipratropium bromide 21 mcg (0.03 2 spray intranasal .prn PRN 03/07/23 04/26/25 History %) nasal spray Allergy Symptoms lorazepam 2 mg tablet 2 mg PO QHS #90 tabs 12/02/24 05/14/25 Rx meloxicam 15 mg tablet 15 mg PO DAILY #90 tabs 12/02/24 05/14/25 Rx hydrocodone 5 mg-acetaminophen 325 1 tablet PO Q8H PRN pain #30 tabs 03/02/25 04/26/25 Rx mg tablet mirtazapine 30 mg tablet 30 mg PO QHS 03/02/25 05/14/25 History omeprazole 40 mg capsule,delayed 40 mg PO BID #180 caps 03/16/25 05/14/25 Rx release Allergies Allergy/AdvReac Type Severity Reaction Status Date / Time clindamycin Allergy Severe Hives Verified 05/14/25 06:59 gabapentin Allergy Severe Swelling Verified 05/14/25 06:59 of Lip/Tongue/Throat pregabalin Allergy Severe Swelling Verified 05/14/25 06:59 of Lip/Tongue/Throat propofol Allergy Severe Anaphylactic Verified 05/14/25 06:59 Shock erythromycin base Allergy Intermediate Difficulty Verified 05/14/25 06:59 Breathing adhesive Allergy Rash Verified 05/14/25 06:59 cefaclor AdvReac Intermediate Vomiting Verified 05/14/25 06:59 trazodone AdvReac Intermediate Other Verified 05/14/25 06:59 Vital Signs Vital Signs - 24 hr 05/14/25 07:00 Temperature 97 F L Pulse Rate 77 Respiratory Rate 16 Blood Pressure 103/65 Pulse Oximetry 97 Oxygen Delivery Room Air Exam Const: General: comfortable and no acute distress HENMT: Face/Nose/Sinus: Normal nares present Eyes: General: appearance normal, both eyes and all related structures Neck: Neck: no JVD Resp: Auscultation: clear to auscultation bilaterally Cardio: Rate: regular rate Rhythm: regular rhythm GI: Inspection: non-distended GI Palp: Yes Soft to palpation Skin: General skin exam: normal color Assessment and Plan Assessment and plan (1) GERD (gastroesophageal reflux disease): Qualifiers: Esophagitis presence: esophagitis presence not specified Qualified Code(s): K21.9 - Gastro-esophageal reflux disease without esophagitis Code(s): K21.9 - Gastro-esophageal reflux disease without esophagitis Status: Acute Assessment and Plan: egd (2) Family history of colon cancer requiring screening colonoscopy: Code(s): Z80.0 - Family history of malignant neoplasm of digestive organs Status: Acute Assessment and Plan: colonoscopy
--- NOTE | 2025-05-14 08:16 | S_PTH ---
PATIENT: Ronald Ventura LOC: [facility]#:[id number] AGE/SX: 55/M ROOM: RE05/14/[address]: Marcus Tamayo MD : 1970 BED: DIS: 05/14/2025 SPEC #: [id number] RECD: 05/14/25 09:18 STATUS: RAIMUNDO REMariah #: [id number] JOHN: 05/14/25 08:[address]: Marcus Tamayo DEPT: [facility] Surgical RECD BY: Ina Greenberg ENTERED: 05/14/25 09:18 SP TYPE: Surgical OTHR DR: Barber Prakash MD Tissues: A - Gastric Biopsy B - Esophageal Biopsy C - Colon Polypectomy D - Colon Polypectomy Procedures: Hematoxylin and Eosin Stain Gross and Microscopic Level 4
--- NOTE | 2025-05-14 08:17 | SUR.OPER ---
EGD ended at 813, colon began at 817
[2025-05-14 08:30] VITALS: BP 144/93; PULSE 84; RESP 18; O2SAT 98
[2025-05-14 08:40] VITALS: BP 139/93; PULSE 81; RESP 18; O2SAT 97
[2025-05-14 08:50] VITALS: BP 134/88; PULSE 75; RESP 18; O2SAT 99
== END 2025-05-14 09:08 | disposition home or self-care (01) ==
PROVIDERS: PCP Family Medicine Adolescent Medicine; Referring Provider Family Medicine Adolescent Medicine; Visit Provider Internal Medicine Gastroenterology
PROC: 0DJ08ZZ Inspection of Upper Intestinal Tract, Via Natural or Artificial Opening Endoscopic (ICD-10-PCS; CPT 45378; principal; 2025-05-14 08:30)
DX: Z12.11 Encounter for screening for malignant neoplasm of colon (principal); K63.5 Polyp of colon; K57.30 Diverticulosis of large intestine without perforation or abscess without bleeding; K21.9 Gastro-esophageal reflux disease without esophagitis; F41.9 Anxiety disorder, unspecified; Z79.891 Long term (current) use of opiate analgesic; Z98.890 Other specified postprocedural states; Z98.1 Arthrodesis status; Z87.891 Personal history of nicotine dependence; Z87.442 Personal history of urinary calculi; Z80.0 Family history of malignant neoplasm of digestive organs
CPT/HCPCS: 43239; 45385; 88305; J1596; J2003; J2250; J2405; J3010; J7120